=== PATIENT | female | born 1970 | race Caucasian/White ===

== ENCOUNTER 2021-02-28 16:33 | Emergency (ER) | payer BC, SELFPAY ==
[2021-02-28 16:54] VITALS: BP 147/99; PULSE 70; RESP 20; TEMP 36.4; O2SAT 99
--- NOTE | 2021-02-28 17:24 | ED.URI ---
HPI - URI/Sore Throat General Chief Complaint: Upper Respiratory Infection Stated Complaint: Cough, sinus pain, Stomach pain. Time Seen by Provider: 02/28/21 17:20 Source: patient and RN notes reviewed Mode of arrival: ambulatory Limitations: no limitations History of Present Illness HPI Narrative: 51-year-old female presents with concern for ear pain, nasal congestion, shortness of breath. Reports she also had abdominal cramping yesterday. Reports she took laxatives after the abdominal cramping he has had having loose stools. She reports someone in her house have had similar symptoms has not been tested. She is not vaccinated for Covid. Reports her mother has Covid. MD elicited complaint: sore throat and nasal congestion Related Data Home Medications Medication Instructions Recorded Confirmed atenolol 02/28/21 hydrochlorothiazide 02/28/21 levothyroxine 02/28/21 Allergies Allergy/AdvReac Type Severity Reaction Status Date / Time No Known Allergies Allergy Verified 02/28/21 16:55 Review of Systems Review of Systems: CONSTITUTIONAL: Reports malaise. Denies chills, sweats, or fever. EYES: Denies visual changes, redness, or discharge. ENT: Reports rhinorrhea, congestion, otalgia. Denies sinus pain and sore throat. CARDIOVASCULAR: Denies chest pain, palpitations, or edema. RESPIRATORY: Reports cough. Denies dyspnea. GASTROINTESTINAL: Denies abdominal pain, nausea, vomiting, diarrhea SKIN: Denies rash or itching. MUSCULOSKELETAL: Denies myalgia. NEUROLOGIC: Denies headache. All systems reviewed & are unremarkable except as noted in HPI and below PMFSH Comments At time of signature, agree with nursing past medical, surgical, social and family history. There is no relevant family history pertinent to the presenting complaint Exam Narrative: GENERAL: Well-appearing, well-nourished, and in no acute distress. HEAD: Normocephalic EYES: PERRLA, conjunctivae clear ENT: Nares clear. Mucous membranes moist. TM pearly garcia with dull light reflex bilaterally; no tragal tenderness. Oropharynx not erythematous without lesions. Tonsils not enlarged and without exudate, no drooling, no hoarseness, no trismus, uvula midline. NECK: Supple. No lymphadenopathy CHEST: Clear to auscultation, breath sounds equal. No wheezing, rhonchi, rales, or stridor. No respiratory distress, speaks in full sentences. Abdomen: Bowel sounds active, no abdominal tenderness HEART: Regular rate and rhythm. No murmur heard. SKIN: Warm, dry, no rash. NEURO: Alert and oriented x3. PSYCH: Normal mood and affect Course Course Emergency Course: Patient is aware of diagnosis, understands and agrees to treatment plan. Anticipatory guidance given. Patient agrees to follow-up as directed and is aware of reasons to seek care at the emergency department. Portions of this record may have been created with voice recognition software Level of Care: Express Care Visit Vital Signs Vital signs: Vital Signs Temperature 97.6 F 02/28/21 16:54 Pulse Rate 70 02/28/21 16:54 Respiratory Rate 20 02/28/21 16:54 Blood Pressure 147/99 H 02/28/21 16:54 Pulse Oximetry 99 02/28/21 16:54 Temperature 97.6 F 02/28/21 16:54 Pulse Rate 70 02/28/21 16:54 Respiratory Rate 20 02/28/21 16:54 Blood Pressure 147/99 H 02/28/21 16:54 Pulse Oximetry 99 02/28/21 16:54 Reviewed. MDM - URI/Sore Throat MDM Narrative Medical decision making narrative: Differential diagnosis considered: Haynes virus, strep pharyngitis, allergic rhinitis, upper respiratory tract infection, sinusitis, rhinosinusitis, nasopharyngitis. viral pharyngitis, otitis media, otitis externa, pneumonia, bronchitis, viral cough syndrome, viral syndrome, and influenza. Exam findings show no acute concerns or changes; patient is non-toxic appearing and is in no distress. Patient is appropriate for outpatient treatment and follow-up. Lab Data Attestation: I reviewed the patient's lab result
[2021-03-01 14:39] LABS: SARS-CoV-2 RNA PCR Negative
== END 2021-02-28 17:58 | disposition home or self-care (01) ==
PROVIDERS: Emergency Provider Nurse Practitioner; PCP Nurse Practitioner Family
DX: B34.9 Viral infection, unspecified (principal); Z20.822 Contact with and (suspected) exposure to COVID-19; E03.9 Hypothyroidism, unspecified; I10 Essential (primary) hypertension
CPT/HCPCS: 87426; 87804; 99213; C9803; G0463; U0003; U0005

== ENCOUNTER 2024-08-01 19:13 | Emergency (ER) | payer BC, SELFPAY ==
--- NOTE | ~2024-08-01 | XR_ITS ---
EXAMINATION: XR chest 2V Exam Date/Time: 08/01/2024 19:34 CDT HISTORY: chest pain Comparison: None. RESULT: Lines, tubes, and devices: None. Lungs and pleura: Clear. Cardiomediastinal silhouette: Unremarkable. Other: No acute osseous or upper abdominal finding. IMPRESSION: No acute cardiopulmonary process. Reviewed, dictated and finalized at location K.
--- NOTE | 2024-08-01 19:16 | ECG_ITS ---
Test Date: 2024-08-01 19:22:57 Measurements Intervals [place] Rate: 66 P: 11 AK: 191 QRS: 23 QRSD: 89 T: 30 QT: 398 QTc: 419 Interpretive Statements SINUS RHYTHM BASELINE ARTIFACT- II, III, AVR, AVF NORMAL ECG No previous ECG available for comparison Electronically Signed On 08-01-2024 20:12:10 CDT by Richard Murphy D.O.
--- OUTSIDE RECORDS SUMMARY | 2024-08-01 19:16 | XMS_ITS | Clinical Summary ---
Author Organization [facility] Medical Office Building [address] Address [address] [place] [address] Care Team Providers Care Shank Skinner Name Role Phone Dory Willams NP Primary Care Provider [phone] Raquel Bai MD Unavailable [phone] Allergies Active Allergy Reactions Criticality Noted Date Comments Latex Unknown 02/11/2017 Medications hydroCHLOROthiaz imtiaz (HYDRODIURIL) 25 mg tablet Take 1 tablet (25 mg total) by mouth daily 90 tablet 3 4 Active Additional Information Patient not taking.Reported on 06/04/2024 levothyroxine (SYNTHROID) 137 mcg tablet TAKE 1 TABLET BY MOUTH EVERY MORNING BEFORE BREAKFAST 90 tablet 3 4 Active atenoloL (TENORMIN) 50 mg tabletIndication s:Essential hypertension TAKE 1 TABLET(50 MG) BY MOUTH DAILY 90 tablet 3 4 Active testosterone cypionate (DEPO-TESTOTERON E) 200 mg/mL injectionIndicat ions:Decreased libido INJECT 1 ML IN THE MUSCLE EVERY 3 MONTHS DIRECTED 1 mL 5 Active tirzepatide, weight loss, (ZEPBOUND) 10 mg/0.5 mL pen injectorIndicati ons:Weight Loss Management for Obese Patient (BMI >= 30) Inject 0.5 mL (10 mg total) under the skin every 7 days 2 mL 1 5 Active clonazePAM (KlonoPIN) 0.5 mg tablet TAKE 1 TABLET BY MOUTH THREE TIMES DAILY NEEDED FOR ANXIETY 90 tablet 5 5 Active estradioL (ESTRACE) 1 mg tabletIndication s:Menopausal syndrome (hot flashes) TAKE 1 TABLET BY MOUTH EVERY DAY 90 tablet 5 Active Active Problems Problem Noted Date Diagnosed Date Mass of subcutaneous tissue of back 06/15/2024 Class 3 severe obesity due t o excess calories with serious comorbidity and body mass index (BMI) of 40.0 to 44.9 in adult 04/30/2024 Assessment & Plan (04/30/2024 10:25 AM SYSTEMS SOFTWARE MANAGER): Doing well with zepbound. Increase to 10mg weekly. F/u in October for annual with labs Class 3 severe obesity due t o excess calories with serious comorbidity and body mass index (BMI) of 45.0 to 49.9 in adult 11/06/2023 Assessment & Plan (04/30/2024 10:23 AM SYSTEMS SOFTWARE MANAGER): Original BMI Assessment & Plan (11/06/2023 8:07 AM CDT): Has been using 's zepbound. Paying out of pocket. Will continue zepbound 5mg weekly. 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 I gave her Silvadene. I recommended dressing changes daily. Keep covered. Refer to Wound Care for follow-up Laryngopharyngeal reflux (LPR) 09/02/2023 Assessment & Plan (09/02/2023 2:53 PM CDT): Take Levothyroxine first, then 30-60 minutes later Take Pantoprazole 40 mg (Protonix), 30-60 minutes prior to any other medication, food or fluids other than water Pepcid 40 mg at bedtime Modified Barium swallow Food allergy 09/02/2023 Assessment & Plan (09/02/2023 2:54 PM CDT): Food allergy testing Skin tag 08/08/2023 Assessment & Plan (06/04/2024 1:35 PM CDT): We will plan to remove the skin tag at the same time as the other 2 lesions. Assessment & Plan (08/08/2023 8:40 AM CDT): Given the issue with things rubbing on this area and causing bleeding we will also set her up for removal at the same time as the shoulder lesion. She is in understanding of the plan. Family history of colon cancer 06/25/2023 Encounter for screening colonoscopy 06/25/2023 Dysphagia 06/25/2023 Skin lesion of back 06/24/2023 Assessment & Plan (08/08/2023 8:39 AM CDT): Given the irregularity of color we will set the patient up for a biopsy of the shoulder skin lesion. The patient states scarring with procedures and given the summer time we would like to try and have this done after so she can stay out of the sun. We will set her up for a time for removal in October. If things appear to change she can call us sooner Assessment & Plan (06/24/2023 3:40 PM CDT): To Dr. Hebert Well woman exam 04/26/2022 Overview (06/24/2023): Lab: Pap:all normal Due for labs. Dick:scheduled. Colonoscopy:due BMD: Gardasil: Assessment & Plan (06/24/2023 3:21 PM CDT): Colonoscopy- order in there Complete exam done. Assessment & Plan (04/26/2022 3:19 PM SYSTEMS SOFTWARE MANAGER): Complete exam done. Decreased libido 03/27/2021 Overview (04/24/2021): 02/2021- they think the testosterone is working and she wants to continue on. To CBC, CMP and LP. Will rto 2m for next injection. Will have a refresher on how to give injections. Assessment & Plan (06/24/2023 3:20 PM CDT): Testosterone called in for her next injection. Chol good in 09/2022 Assessment & Plan (06/01/2022 6:54 AM CDT): Doing well on testosterone and wants to continue on Will follow cmp and lipids. Assessment & Plan (03/27/2021 2:16 PM SYSTEMS SOFTWARE MANAGER): Options discussed She wants to start testosterone Risk and benefits discussed including but not limited to elevated cholesterol, increased hair growth, acne, swelling of genitals, fluid retention and deepening of voice. Use reviewed including that the amount given q 3m is done to avoid these side effects. She voices understanding and desires to proceed She will grain picker and bring to the office for injection. rto 3m Nocturia 02/13/2021 Overview (04/24/2021): Will need to discuss further at her next visit along with her other bladder issues. 04/24/21- voiding diary reviewed. She drinks a lot and voids a lot. We discussed limiting her intake after 6pm and watching for bladder irritants. Assessment & Plan (04/24/2021 3:08 PM SYSTEMS SOFTWARE MANAGER): voiding diary reviewed. She drinks a lot and voids a lot. We discussed limiting her intake after 6pm and watching for bladder irritants. Assessment & Plan (03/27/2021 2:00 PM SYSTEMS SOFTWARE MANAGER): See above Multiple atypical skin moles 01/04/2021 Assessment & Plan (06/04/2024 1:34 PM CDT): As she will have the back lesion excised we will also remove the atypical lesion on the lateral aspect of the shoulder at the same time. Assessment & Plan (10/19/2022 8:58 PM CDT): Refer to dermatology Assessment & Plan (01/04/2021 1:57 PM SYSTEMS SOFTWARE MANAGER): Refer to dermatology Lipoma of back 01/04/2021 Assessment & Plan (06/04/2024 1:34 PM CDT): Given the pain and discomfort that the area is causing we will set her up for excision. Assessment & Plan (01/04/2021 1:56 PM SYSTEMS SOFTWARE MANAGER): Refer to general surgery for evaluation Menopausal syndrome (hot flashes) 01/04/2021 Overview (03/27/2021): estradiol 1mg Assessment & Plan (06/24/2023 3:19 PM CDT): Will use the estradiol 1mg Assessment & Plan (06/01/2022 6:55 AM CDT): Controlled with estradiol 1mg To continue on Assessment & Plan (03/27/2021 2:01 PM SYSTEMS SOFTWARE MANAGER): Better with estradiol 1mg. Assessment & Plan (02/13/2021 3:04 PM SYSTEMS SOFTWARE MANAGER): Will start her on estradiol .5mg po q day. Risk and benefits discussed. Breast cancer and CV disease discussed I am hoping that if she can get some sleep, some of the libido will return. They are dating. rto 6 weeks. If she gets breast tenderness with the .5, to take 1/2 until it goes away. Assessment & Plan (01/04/2021 1:53 PM SYSTEMS SOFTWARE MANAGER): Having hot flashes and decreased sexual desire. Will check FSH and LH and refer to gynecology Acute right-sided low back pain with sciatica Assessment & Plan (10/05/2020 10:59 AM CDT): Resolved. States it's 100% better. Assessment & Plan (08/12/2020 9:17 PM CDT): Recommended walking, stretching exercises. Handout on low back pain exercises given. Will start flexeril at bedtime. Gave diclofenac and recommended taking bid for 1-2 weeks scheduled. May take tylenol if needed. No further ibuprofen. Discussed physical therapy if needed. I asked patient to call back if no improvement over the course of 2-4 weeks and we can always order physical therapy. Pt voiced understanding of plan of care and f/u. Neuropathy 08/12/2020 Assessment & Plan (10/05/2020 11:21 AM CDT): With RLS symptoms. Taking gabapentin at bedtime and she has found some improvement with that. Assessment & Plan (08/12/2020 9:19 PM CDT): Interfering with quality of life. Will start gabapentin 300mg titrating up 900mg daily as tolerating/ needed. F/u 1 month Non-seasonal allergic rhinitis due to pollen 10/2019 Assessment & Plan (09/02/2023 2:53 PM CDT): Food allergy testing Blood respiratory allergy testing Assessment & Plan (01/04/2021 1:49 PM SYSTEMS SOFTWARE MANAGER): Refer to nail polish brush machine feeder for testing Assessment & Plan (02/03/2020 10:26 AM SYSTEMS SOFTWARE MANAGER): Has daily congestion due to allergies. Encouraged to restart fluticasone nasal spray daily. She has been taking Zyrtec daily. She can change that to Zyrtec D with Sudafed in it. Chronic pain of left knee 05/22/2018 Assessment & Plan (02/03/2020 10:23 AM SYSTEMS SOFTWARE MANAGER): Continues to have left knee pain but wants to hold off on orthopedic referral right now. She will let us know if she changes her mind Assessment & Plan (12/08/2018 10:28 AM CDT): Refer to ortho Assessment & Plan (05/28/2018 2:10 PM CDT): Will try meloxicam 15mg daily. Refer to PT. Return to ortho as planned Family hx of colon cancer 08/13/2017 Overview (08/13/2017): Added automatically from request for surgery [id number] Assessment & Plan (04/26/2022 3:22 PM SYSTEMS SOFTWARE MANAGER): She is due for colonoscopy Bursitis of hip 08/12/2017 Stress incontinence of urine 08/12/2017 Assessment & Plan (06/24/2023 3:22 PM CDT): She feels like it is getting worse Will refer to Dr. Gar. Assessment & Plan (04/26/2022 3:21 PM SYSTEMS SOFTWARE MANAGER): Stable, doesn't want to get sling Assessment & Plan (04/24/2021 3:08 PM SYSTEMS SOFTWARE MANAGER): Better, will follow Assessment & Plan (08/12/2017 1:48 PM CDT): Ongoing problem. Urine dip normal. placed referral to urology Essential hypertension 02/11/2017 Assessment & Plan (11/07/2023 8:07 AM CDT): Stable/ Improved. Blood pressure is adequately controlled on hydrochlorothiazide . We will not make any medication changes today. Will have her follow-up in 6 months for continued monitoring and management Assessment & Plan (04/22/2023 4:11 PM SYSTEMS SOFTWARE MANAGER): Stable/ Improved. Blood pressure is adequately controlled on current medication. We will not make any medication changes today. Will have her follow-up in 6 months for continued monitoring and management Assessment & Plan (10/19/2022 8:55 PM CDT): Stable/ Improved. Blood pressure is adequately controlled on current medication. We will not make any medication changes today. Will have her follow-up in 6 months for continued monitoring and management Assessment & Plan (04/11/2022 4:10 PM SYSTEMS SOFTWARE MANAGER): BP Readings from Last 3 Encounters: 02/07/22 122/89 10/04/21 132/83 04/24/21 130/84 There were no vitals taken for this visit. Lab Results Component Value Date POTASSIUM 4.3 04/24/2021 Continue atenlol 50 mg every day Hctz, 25 mg every day since she is well controlled Assessment & Plan (10/07/2021 9:37 PM CDT): Stable/ Improved. Blood pressure is adequately controlled on current medication. We will not make any medication changes today. Will have her follow-up in 6 months for continued monitoring and management Assessment & Plan (04/16/2021 10:26 AM SYSTEMS SOFTWARE MANAGER): Stable/ Improved. Blood pressure is adequately controlled on current medication. We will not make any medication changes today. Will have her follow-up in 6 months for continued monitoring and management Assessment & Plan (08/12/2020 9:10 PM CDT): Stable/ Improved. Blood pressure is adequately controlled on current medication. We will not make any medication changes today. Will have her follow-up in 6 months for continued monitoring and management Assessment & Plan (02/03/2020 10:24 AM SYSTEMS SOFTWARE MANAGER): Blood pressure is adequately controlled on current medication. We will not make any medication changes today. Will have her follow-up in 6 months for continued monitoring and management Assessment & Plan (05/27/2019 12:35 PM CDT): Blood pressure has been stable. Will have her continue current medication. F/u 6 months for physical/ med check and labs Assessment & Plan (12/08/2018 10:23 AM CDT): Hypertension is improving with treatment. Continue current treatment regimen. Continue current medications. Blood pressure will be reassessed 6 months. Assessment & Plan (05/28/2018 2:09 PM CDT): Hypertension is improving with treatment. Continue current medications. Blood pressure will be reassessed 6 months. Assessment & Plan (08/12/2017 1:50 PM CDT): Hypertension is improving with treatment. Continue current treatment regimen. Blood pressure will be reassessed in 4 weeks Blood pressure controlled - has mild swelling of ankles, especially in summer in heat. Started hctz 25mg prn for swelling. Assessment & Plan (02/11/2017 1:17 PM SYSTEMS SOFTWARE MANAGER): Hypertension is improving with treatment. Dietary sodium restriction. Weight loss. Regular aerobic exercise. Continue current medications. Blood pressure will be reassessed 6 months. Depression with anxiety 02/11/2017 Assessment & Plan (11/07/2023 8:09 AM CDT): Stable on current medication. Continue clonazepam as ordered. May follow up in 6 months Assessment & Plan (04/22/2023 4:12 PM SYSTEMS SOFTWARE MANAGER): Continues on clonazepam 0.5 mg t.i.d. p.r.n. Assessment & Plan (10/19/2022 8:57 PM CDT): Stable. Doing well with clonazepam .5mg bid. I checked their [place] [employer] sheet, and it was consistent with prescribed medications. Will continue current medications and f/u 6 months Assessment & Plan (04/11/2022 4:12 PM SYSTEMS SOFTWARE MANAGER): Stable on current medication. Continue clonazepam as per her pcp Assessment & Plan (10/07/2021 9:39 PM CDT): Stable on current medication. Continue clonazepam as ordered. May follow up in 6 months Assessment & Plan (04/24/2021 3:09 PM SYSTEMS SOFTWARE MANAGER): Has been good. Will follow and see if she has a moment of depression and anxiety a month after her next shot. Assessment & Plan (04/16/2021 10:26 AM SYSTEMS SOFTWARE MANAGER): Is improving with hormone therapy monitored by Dr. Bai. Is going to consider restarting ssri with Dr. Bai when she follows up Assessment & Plan (03/27/2021 2:07 PM SYSTEMS SOFTWARE MANAGER): She will wait to see how the testosterone effects her and then restart her celexa. Assessment & Plan (02/13/2021 3:05 PM SYSTEMS SOFTWARE MANAGER): Stable with out meds Assessment & Plan (01/04/2021 1:51 PM SYSTEMS SOFTWARE MANAGER): Stable on current medication. Continue Wellbutrin as ordered. May follow up in 6 months Assessment & Plan (10/05/2020 11:21 AM CDT): Stabilized. Continue Wellbutrin XL 150 mg once daily. Will have her follow-up in 6 months Assessment & Plan (08/12/2020 9:16 PM CDT): She quit taking the citalopram. Will try wellbutrin xl 150mg daily. F/u 1 month for recheck Assessment & Plan (02/03/2020 10:24 AM SYSTEMS SOFTWARE MANAGER): Stable on current medication. Continue citalopram and clonazepam as ordered. May follow up in 6 months Assessment & Plan (05/27/2019 12:02 PM CDT): Continue on citalopram 20 mg once daily. Will continue clonazepam 0.5 mg t.i.d. p.r.n.. Refills given. Will have her follow-up in 6 months with office visit and labs Assessment & Plan (12/08/2018 10:28 AM CDT): Continue celexa. She has been having more anxiety. We had switched her from xanax to clonazepam. She saves them for night, but sometimes has to take one during the day. Will increase to .5mg TID prn. Discussed taking them bid and take one in the afternoon if needed. Assessment & Plan (05/28/2018 2:11 PM CDT): Continue current medications. Doing well on celexa 30mg. F/u 6 months Assessment & Plan (08/12/2017 1:49 PM CDT): Will trial increase of celexa to 30mg to see if anxiety is more controlled in evening. Will also change xanax to clonazepam .5mg at bedtime. F/u 1 month for recheck Assessment & Plan (02/11/2017 1:38 PM SYSTEMS SOFTWARE MANAGER): Psychological condition is improving with treatment. Medication changes per orders. Psychological condition will be reassessed 6 months. Continue celexa and xanax. Acquired hypothyroidism 02/11/2017 Overview (03/27/2021): Normal TSH=07/2020 Assessment & Plan (11/06/2023 8:01 AM CDT): Check TSH today. Continue current medication. . Please take levothyroxine on an empty stomach. This means 1 hour before eating or 2 hours after eating. Food in the stomach will interfere with absorption of the levothyroxine. Calcium, antacids and iron supplements will also interfere with the absorption of levothyroxine. Please take these at a different time of the day Assessment & Plan (04/22/2023 4:12 PM SYSTEMS SOFTWARE MANAGER): We would increased levothyroxine to 137 mcg at last office visit. She is due for repeat TSH. Labs ordered today. Assessment & Plan (10/19/2022 8:55 PM CDT): Check TSH today. Continue current medication. . Please take levothyroxine on an empty stomach. This means 1 hour before eating or 2 hours after eating. Food in the stomach will interfere with absorption of the levothyroxine. Calcium, antacids and iron supplements will also interfere with the absorption of levothyroxine. Please take these at a different time of the day Assessment & Plan (04/11/2022 4:12 PM SYSTEMS SOFTWARE MANAGER): Lab Results Component Value Date TSH 4.40 (H) 10/04/2021 Last tsh mildly elevated, would consider increasing her synthroid despite not needing it to be increased as it welln hopefully provide some improvement in sx. Other option would be to add low dose cytomel Assessment & Plan (10/07/2021 9:37 PM CDT): Check TSH today. Continue current medication. . Please take levothyroxine on an empty stomach. This means 1 hour before eating or 2 hours after eating. Food in the stomach will interfere with absorption of the levothyroxine. Calcium, antacids and iron supplements will also interfere with the absorption of levothyroxine. Please take these at a different time of the day Assessment & Plan (04/16/2021 10:25 AM SYSTEMS SOFTWARE MANAGER): Thyroid stable. Will continue current medication and recheck with labs this summer. Assessment & Plan (10/05/2020 11:20 AM CDT): Had increased levothyroxine to 112 mcg. Will recheck TSH today. Assessment & Plan (08/12/2020 9:11 PM CDT): Check TSH today. Continue current medication. Assessment & Plan (02/03/2020 10:24 AM SYSTEMS SOFTWARE MANAGER): Check TSH today. Continue current medication. Assessment & Plan (05/27/2019 12:34 PM CDT): Check TSH in 6 months with OV. Continue current medication. Assessment & Plan (12/08/2018 10:24 AM CDT): Check TSH today. Continue current medication. Assessment & Plan (05/28/2018 2:10 PM CDT): Order for labs. Continue current medications. Assessment & Plan (08/12/2017 1:50 PM CDT): Due for repeat lab work. Continue levothyroxine. Assessment & Plan (02/11/2017 1:37 PM SYSTEMS SOFTWARE MANAGER): Has been on synthroid 100mcg. Has been out for over 2 weeks. Restart synthroid 100mcg. jose will then recheck TSH in 6-8 weeks History of bladder suspension procedure 02/12/20 17 Overview (03/27/2021): Leaking now Has seen someone and was told to do kegals No PVR since prior to surgery UsG done 03/27/21 for PVR- pending Assessment & Plan (03/31/2021 6:56 PM SYSTEMS SOFTWARE MANAGER): Leaking now Has seen someone and was told to do kegals No PVR since prior to surgery UsG done 03/27/21 for PVR- pending (no catheters in office) May need voiding diary. If there is a component of DI, may benefit from anticolinergics. I was told this was low, but the official report was pending. To a voiding diary. Assessment & Plan (02/11/2017 1:40 PM SYSTEMS SOFTWARE MANAGER): She feels like the bladder is dropping again and is asking for referral to urology. Resolved Problems Problem Noted Date Diagnosed Date Resolved Date Open wound of left lower leg 11/04/2023 04/30/2024 Difficulty swallowing 06/24/20232024 Assessment & Plan (09/02/2023 2:53 PM CDT): Modified Barium swallow Assessment & Plan (06/24/2023 3:38 PM CDT): Will refer to Dr. Camejo's Numbness and tingling in both hands 10/07/2021 04/30/2024 Assessment & Plan (10/07/2021 9:41 PM CDT): Emg/ncv ordered. Recommended cock-up wrist brace at night, nsaids as needed Other chest pain 12/08/2018 02/03/2020 Assessment & Plan (12/08/2018 10:30 AM CDT): EKG shows NSR. Likely anxiety, but I told her one eKg could not rule out CAD. I encouraged her to go to the ER if she has continued chest pain for full workup. Also encouraged referral to cardiology, but pt states she does not want referral at this time. Discussed risks of not going including acute coronary syndrome and risk of and pt voiced understanding. Chronic fatigue 10/03/2017 10/19/2022 Assessment & Plan (10/07/2017 7:19 AM CDT): Sleeping improved with clonazepam. Also c/o of easy bruising. Hx anemia. Will order labs Anemia 10/03/2017 02/13/2021 Assessment & Plan (10/03/2017 1:22 PM CDT): Will recheck cbc and B12 Annual physical exam 08/13/2017 024 Overview (08/13/2017): Added automatically from request for surgery [id number] Assessment & Plan (04/22/2023 4:09 PM SYSTEMS SOFTWARE MANAGER): Patient Counseling: --Nutrition: Stressed importance of moderation in sodium/caffeine intake, saturated fat and cholesterol, caloric balance, sufficient intake of fresh fruits, vegetables, --Exercise: Stressed the importance of regular exercise. --Continue routine dental and vision visits --Immunizations reviewed and offered --Discussed benefits of screening colonoscopy.- starting at age 45-50- UTD --females- mammograms offered if applicable/ needed., starting at age 40- due -Routine labs/ screenings ordered Assessment & Plan (10/07/2021 9:38 PM CDT): Patient Counseling: --Nutrition: Stressed importance of moderation in sodium/caffeine intake, saturated fat and cholesterol, caloric balance, sufficient intake of fresh fruits, vegetables, --Exercise: Stressed the importance of regular exercise. --Continue routine dental and vision visits --Immunizations reviewed and offered --Discussed benefits of screening colonoscopy.- starting at age 45-50- UTD --females- mammograms offered if applicable/ needed., starting at age 40- scheduled -Routine labs/ screenings ordered Assessment & Plan (01/04/2021 1:59 PM SYSTEMS SOFTWARE MANAGER): -Recommended: Healthy diet. Avoiding junk food/fast food. -30 minutes of exercise most days of the week. Increase to 45 minutes for weight loss. Immunizations: Up to date lose weight, increase physical activity, continue present diet with no restrictions, continue present plan, call if any problems Follow-up in 6 months. 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 08/12/2017 02/03/2020 Encounters Date Type Department Care Team Description 07/24/2024 Hospital Encounter [facility] Operating Room [address] [place] [address] Preston Giron MD 06/04/2024 11:25 AM CDT Office Visit [facility] [address] [facility] [address] [place] [address] Preston Giron MD Multiple atypical skin moles (Primary Dx); Lipoma of back; Skin tag 05/21/2024 Telephone [facility] Primary Care at [address] [address] Dory Willams NP Medical Question/Miscellane ous 05/05/2024 Telephone [facility] [address] [facility] [address] [place] [address] Raquel Bai MD Referral Follow Up (Dr Janay Gar ) from Last 3 Months Immunizations Immunization Administration Dates Next Due Influenza, Unspecified 11/01/2023(Deferr ed: Patient Refused),04/22/2023(Deferred: Patient Refused),10/16/2022(Deferred: Patient Refused),02/25/2022(Deferred: Patient Refused),10/26/2021(Deferred: Patient Refused),10/04/2021(Deferred: Patient Refused),04/26/2021(Deferred: Patient Refused),02/11/2017(Deferred: Patient Refused) Tdap 01/03/2021 Surgical History Surgery Date Site/Laterality Comments SECTION SECTION APPENDECTOMY CHOLECYSTECTOMY BLADDER SUSPENSION HYSTERECTOMY 02/25/2014 - 02/24/2015 partial UPPER GASTROINTESTINAL ENDOSCOPY 01/09/2024 Medical History Medical History Date Comments Thyroid disease Hypertension Anemia 10/03/2017 Open wound of left lower leg 11/04/2023 Family History Medical History Relation Name Comments Colon cancer Brother he was told not hereditary Hypertension Father Cancer Neg Hx no breast or gy n cancer 02/13/21 Relation Name Status Comments Brother Father Mother Alive Social History Tobacco Use Types Packs/Day Years Used Date Smoking Tobacco: Former Cigarettes Q uit: 2013 Smokeless Tobacco: Never Tobacco Cessation:Counseling Given: Not Answered Humiliation, Afraid, Rape, and Kick questionnair e Answer Date Recorded Within the last year, have y ou been afraid of your partner or ex-partner? No 02/13/2021 Within the last year, have y ou been humiliated or emotionally abused in other ways by your partner or ex-partner? No Within the last year, have y ou been kicked, hit, slapped, or otherwise physically hurt by your partner or ex-partner? No 02/13/2021 Within the last year, have y ou been raped or forced to have any kind of sexual activity by your partner or ex-partner? No 02/13/2021 AUDIT-C Answer Date Recorded Q1: How often do you have a drink containing alc ohol? 2-3 times a week 06/24/2023 Q2: How many drinks containi ng alcohol do you have on a typical day when you are drinking? 5 or 6 06/24/2023 Q3: How often do you have si x or more drinks on one occasion? Monthly 06/24/2023 PHQ-2 Answer Date Recorded PHQ-2 Total Score (If total score is 3 or more points, staff should administer the PHQ-9) 0 11/01/2023 Personal Safety Answer Date Recorded Have you ever been in or are you currently in a harmful physical or emotional relationship or is someone making you feel afraid or unsafe? 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 Not on file Not on file Not on file Obstetrics History Para Term AB IAB SAB Ectopic Multiple Livin g Live Births 2 2 2 2 Date Outcome GA Total Labor Labor/2nd/3rd Weight Sex Type Anes PTL Kinza A1 A5 Name Clin Term Term Last Filed Vital Signs Vital Sign Reading Time Taken Comments Blood Pressure 122/86 06/04/2024 11:14 AM CDT Pulse 61 06/04/2024 11:14 AM CDT Temperature 36.1 C (97 F) 06/04/2024 11:14 AM CDT Respiratory Rate 18 04/30/2024 9:46 AM SYSTEMS SOFTWARE MANAGER Oxygen Saturation 99% 06/04/2024 11: 14 AM CDT Inhaled Oxygen Concentration - - Weight 106.9 kg (235 lb 11.2 oz) 2024 11:14 AM CDT Height 157.5 cm (5' 2) 06/04/2024 11:1 4 AM CDT Body Mass Index 43.11 06/04/2024 11:14 AM CDT Plan of Treatment Health Maintenance Due Date Last Done Comments Hepatitis C Screening 1970 Hepatitis B Screening 02/26/1990 Breast Cancer Screening-Mammogram 09/21/2021 09/21/2020, 06/09/2018, 03/27/2017 Zoster Vaccine (1 of 2) 02/26/2022 Regular Well Visit/Exam 18-64 06/23/2024 06/24/2023, 04/22/2023, 04/26/2022, Additional history exists Depression Screening 10/31/2024 11/01/2023, 06/24/2023, 04/22/2023, Additional history exists Colon Cancer Screening-Colonoscopy 01/08/2029 01/09/2024, 10/14/2017, 10/14/2017 DTaP/Tdap/Td Vaccine (2 - Td or Tdap) 01/03/2031 01/03/2021 Influenza Vaccine Discontinued Pneumococcal vaccine <65 Aged Out No longer eligible based on patient's age to complete this topic Procedures Procedure Name Priority Date/Time Associated Diagnosis Comments COLONOSCOPY 01/09/2024 12:40 PM SYSTEMS SOFTWARE MANAGER SCREENING MAMMOGRAM BILATERAL W SURJIT Schedule Routine, Read Routine (OP Routine) 09/21/2020 1:13 PM CDT Screening mammogram for high-risk patient from Last 3 Months or Most Recently Relevant to Health Maintenance Results * Colonoscopy (01/09/2024 12:40 PM SYSTEMS SOFTWARE MANAGER) Anatomical Region Laterality Modality Other Narrative Procedure Note KarKatey caal MD - 01/09/2024 12:40 PM CST [facility] Patient Name: Cassi Mcpherson Procedure Date: 01/09/2024 12:40PM Date of : 1970 Admit Type: Outpatient Age: 53 Gender: Female Attending MD: Katey Andrade M.D. Room: [facility] ENDOSCOPY ROOM 1 Note Status: Finalized Patient Profile: This is a 53 year old female. Brother had coloncancer. Procedure: Colonoscopy Indications: Screening in patient at increased risk: Familyhistory of 1st-degree relative with colorectal cancerbefore age 60 years, Last colonoscopy: September 2017 Referring MD: Usha Oneill Providers: Katey Andrade M.D. Impression: - Internal and external hemorrhoids - The entire examined colon is normal overall. Biopsied. Recommendation: - Repeat colonoscopy in 5 years for screeningpurposes. Medicines: Monitored Anesthesia Care Complications: No immediate complications. Estimated Blood Loss: Estimated blood loss: none. Procedure: Pre-Anesthesia Assessment: - Prior to the procedure, a History and Physicalwas performed, and patient medications and allergieswere reviewed. The patient's tolerance of previous anesthesia was also reviewed. The risks andbenefits of the procedure and the sedation options and risks were discussed with the patient. All questions were answered, and informed consent was obtained. Prior Anticoagulants: The patient has taken noanticoagulant or antiplatelet agents. ASA Grade Assessment: Per anesthesia note and evaluation. After reviewing the risks and benefits, the patient was deemed in satisfactory condition to undergo the procedure. The benefits, risks and alternatives of theprocedure and sedation were discussed and informed consentwas obtained. All questions were answered. Please referto the signed informed consent document in the medical record. The bowel preparation used was Miralax via split dose instruction. The bowel preparation usedwas bisacodyl tablets via split dose instruction. The scope was passed under direct vision. The Pediatric Colonoscope PCF-H190L [id number] was introducedthrough the anus and advanced to the the cecum, identifiedby appendiceal orifice and ileocecal valve. Thequality of the bowel preparation was good. Bowel prep was administered using a split dose. Findings: Small to medium-sized external hemorrhoids were found on perianalexam. Some bleeding noted after insertion of the scope. The cecum appeared normal. The colon (entire examined portion) appeared normal. No polyps and no mass lesions noted. Random biopsies were taken with a cold forcepsfor histology. Internal hemorrhoids were found during retroflexion. The hemorrhoids were small to medium-sized. Electronically signed by Katey Andrade M.D. Katey Andrade M.D. 01/09/2024 2:21:10 PM Number of Addenda: 0 Note Initiated On: 01/09/2024 12:40 PM Procedure Code(s): --- Professional --- 62801, Colonoscopy, flexible; with biopsy, single or multiple Diagnosis Code(s): --- Professional --- Z80.0, Family history of malignant neoplasm of digestive organs K64.8, Other hemorrhoids CPT copyright 2020 [employer]. All rights reserved. The codes documented in this report are preliminary and upon activities attendant reviewmay be revised to meet current compliance requirements. Recognized by the [employer] for promoting quality in endoscopy Katey Andrade MD ENDOSCOPY PROCEDURES Final Result * Screening Mammogram Bilateral W Surjit (09/21/2020 1:13 PM CDT) Anatomical Region Laterality Modality Breast Bilateral Mammography 09/21/2020 1:51 PM CDT Impressions 09/21/2020 1:51 PM CDT There is no mammographic evidence of malignancy. A 1 year screening mammogram is recommended. BI-RADS: 1 - Negative. The patient will be entered into a reminder system with a target due date of 1 year for her next mammogram. Electronically signed by: MD Cathi Aden 09/21/2020 1:51 PM CDT EXAMINATION: SCREENING MAMMOGRAM BILATERAL W SURJIT ORDERING HEALTHCARE PROVIDER: DORY WILLAMS HISTORY: Routine screening mammography. COMPARISON: 06/09/2018 and 03/27/2017 TECHNIQUE: CC and MLO views of the bilateral breasts were obtained with digital technique using breast tomosynthesis with C view. Computer aided detection was utilized. FINDINGS: DENSITY: There are scattered fibroglandular elements in the bilateral breasts. BREASTS: There are no suspicious masses, suspicious calcifications, or other suspicious findings in either breast. There has been no suspicious interval change. Dory Willams EXPLOSIVE ORDNANCE TECHNICIAN IMG MAMMO PROCEDURES Final Re sult from Last 3 Months or Most Recently Relevant to Health Maintenance Insurance ANTHEM ACCESS CHOICE ANTHEM ACCESS CHOICE ANTHEM ACCESS CHOICE Advance Directives For more information, please contact: [phone] * Full Code (Latest Code Status on File) Date Activated Date Inactivated Comments 01/09/2024 12:15 PM 01/09/2024 6:50 PM * Full Code Date Activated Date Inactivated Comments 01/09/2024 12:15 PM 01/09/2024 12:15 PM * Full Code Date Activated Date Inactivated Comments 10/14/2017 11:47 AM 10/14/2017 4:17 PM Care Teams Shank Skinner Relationship Specialty Start Date End Date Dory Willams NP PCP - General Family Medicine 02/11/17 Raquel Bai MD Consulting Physician Obstetrics and Gynecology 10/04/21
--- OUTSIDE RECORDS SUMMARY | 2024-08-01 19:16 | XMS_ITS | Encounter Summary ---
Author Organization [facility] Healthcare Address [address] [place] [address] Care Team Providers Care Air Breaker Operator Name Role Phone Dory Willams NP Primary Care Provider [phone] Raquel Bai MD Unavailable [phone] Reason for Visit * Auth/Cert (Routine) Specialty Diagnoses / Procedures Referred By Gibran saenz Referred To Contact Diagnoses Mass of subcutaneous tissue of back Mass of subcutaneous tissue of back [R22.2] Procedures [place] EXCISION TUMOR SOFT TIS BACK/FLANK SUBQ 3 CM/> EXCISION SOFT TISSUE MASS OF BACK Referral ID Status Reason Start Date Expiration Date Visits Re quested Visits Authorized [id number] 1 1 Encounter Details Date Type Department Care Team (Late st Contact Info) Description 07/24/2024 Hospital Encounter [facility] Operating Room [address] [place] [address] Preston Giron MD [address] [place] [id number] Social History Tobacco Use Types Packs/Day Years Used Date Smoking Tobacco: Former Cigarettes Q uit: 2013 Smokeless Tobacco: Never Humiliation, Afraid, Rape, and Kick questionnair e [...] file Not on file Not on file documented as of this encounter Plan of Treatment Not on file documented as of this encounter Visit Diagnoses Diagnosis Mass of subcutaneous tissue of back- Primary documented in this encounter Admitting Diagnoses Diagnosis Mass of subcutaneous tissue of back documented in this encounter Care Teams Air Breaker Operator Relationship Specialty Start Date End Date Dory Willams NP PCP - General Family Medicine 02/11/17 Raquel Bai MD Consulting Physician Obstetrics and Gynecology 10/04/21 documented as of this encounter
--- OUTSIDE RECORDS SUMMARY | 2024-08-01 19:16 | XMS_ITS | Encounter Summary ---
Author Organization [facility] Address [address] [place] [address] Phone Care Team Providers Care Associate School Psychologist Name Role Phone Dory Willams NP Primary Care Provider [phone] Raquel Bai MD Unavailable [phone] Encounter Details Date Type Department Care Team (Late st Contact Info) Description 02/11/2017 Orders Only [facility] ProviderWu MD [address] [place] [id number] Social History Tobacco Use Types Packs/Day Years Used Date Smoking Tobacco: Former Cigarettes Q uit: 2013 Smokeless Tobacco: Never Comments Unknown Sex and Gender Information Value Date Recorded Sex Assigned at Not on file Legal Sex Female 11:16 AM CDT Gender Identity Not on file Sexual Orientation Not on file documented as of this encounter Plan of Treatment Not on file documented as of this encounter Procedures Procedure Name Priority Date/Time Associated Diagnosis Comments DISCHARGE LABORATORY CUMULATIVE REPORT 02/11/2017 12:00 AM FORMING ROLL OPERATOR HEAVY DUTY documented in this encounter Results * DISCHARGE LABORATORY CUMULATIVE REPORT (02/11/2017 12:00 AM FORMING ROLL OPERATOR HEAVY DUTY) Narrative 02/11/2017 12:00 AM FORMING ROLL OPERATOR HEAVY DUTY Ordered by an unspecified provider. Historical Provider LAB BLOOD ORDERABLES Lore l Result documented in this encounter Visit Diagnoses Not on filedocumented in this encounter Additional Health Concerns Infection Onset Date Last Indicated Resolved Time COVID: Suspected 12/01/2019 12/01/2019 12/02/2019 4:01 PM CDT Respiratory Infection ([facility]), contact + droplet Comment:Automatically added due to negative COVID-19 result. 12/02/2019 12/02/2019 12/16/2019 3:0 7 AM CDT COVID: Suspected 02/07/2022 02/07/2022 02/08/2022 1:17 AM FORMING ROLL OPERATOR HEAVY DUTY COVID: Suspected 03/19/2022 03/19/2022 03/19/2022 9:04 AM FORMING ROLL OPERATOR HEAVY DUTY COVID: Suspected 01/03/2023 01/03/2023 01/03/2023 10:28 AM FORMING ROLL OPERATOR HEAVY DUTY COVID: Suspected 01/03/2023 01/03/2023 01/03/2023 5:32 PM FORMING ROLL OPERATOR HEAVY DUTY documented as of this encounter Care Teams Associate School Psychologist Relationship Specialty Start Date End Date Dory Willams NP PCP - General Family Medicine 02/11/17 Raquel Bai MD Consulting Physician Obstetrics and Gynecology 10/04/21 documented as of this encounter
[2024-08-01 19:17] VITALS: BP 165/105; PULSE 72; RESP 15; TEMP 36.7; O2SAT 99
--- OUTSIDE RECORDS SUMMARY | 2024-08-01 19:17 | XMS_ITS | Referral Summary ---
Author Organization [facility] Medical Office Building [address] Address [address] [place] [address] Care Team Providers Care Roaster Operator Name Role Phone Dory Willams NP Primary Care Provider [phone] Raquel Bai MD Unavailable + [phone] Encounters Date Type Department Care Team Description 07/24/2024 Hospital Encounter [facility] Operating Room [address] [place] [address] Preston Giron MD 06/04/2024 11:25 AM CDT Office Visit [facility] [address] [place] [address] [address] [place] [address] Preston Giron MD Multiple atypical skin moles (Primary Dx); Lipoma of back; Skin tag 05/21/2024 Telephone [facility] [id number] [place] [address] Dory Willams NP Medical Question/Miscellane ous 05/05/2024 Telephone [facility] [address] [place] [address] [address] [place] [address] Raquel Bai MD Referral Follow Up (Dr Janay Gar ) from Last 3 Months Allergies Active Allergy Reactions Criticality Noted Date [...] 04/30/2024 Assessment & Plan (04/30/2024 10:25 AM X RAY EQUIPMENT TESTER): Doing well with zepbound. Increase to 10mg weekly. F/u in October for annual with labs Class 3 severe obesity due t o excess calories with serious comorbidity and body mass index (BMI) of 45.0 to 49.9 in adult 11/06/2023 Assessment & Plan (04/30/2024 10:23 AM X RAY EQUIPMENT TESTER): Original BMI Assessment & Plan (11/06/2023 8:07 [...] done. Assessment & Plan (04/26/2022 3:19 PM X RAY EQUIPMENT TESTER): Complete exam done. Decreased libido 03/27/2021 Overview [...] lipids. Assessment & Plan (03/27/2021 2:16 PM X RAY EQUIPMENT TESTER): Options discussed She wants to start testosterone Risk and benefits discussed including but not limited to elevated cholesterol, increased hair growth, acne, swelling of genitals, fluid retention and deepening of voice. Use reviewed including that the amount given q 3m is done to avoid these side effects. She voices understanding and desires to proceed She will crop picker and bring to the office for injection. rto 3m Nocturia 02/13/2021 Overview (04/24/2021): Will need to discuss further at her next visit along with her other bladder issues. 04/24/21- voiding diary reviewed. She drinks a lot and voids a lot. We discussed limiting her intake after 6pm and watching for bladder irritants. Assessment & Plan (04/24/2021 3:08 PM X RAY EQUIPMENT TESTER): voiding diary reviewed. She drinks a lot and voids a lot. We discussed limiting her intake after 6pm and watching for bladder irritants. Assessment & Plan (03/27/2021 2:00 PM X RAY EQUIPMENT TESTER): See above Multiple atypical skin moles 01/04/2021 Assessment & Plan (06/04/2024 1:34 PM CDT): As she will have the back lesion excised we will also remove the atypical lesion on the lateral aspect of the shoulder at the same time. Assessment & Plan (10/19/2022 8:58 PM CDT): Refer to dermatology Assessment & Plan (01/04/2021 1:57 PM X RAY EQUIPMENT TESTER): Refer to dermatology Lipoma of back 01/04/2021 Assessment & Plan (06/04/2024 1:34 PM CDT): Given the pain and discomfort that the area is causing we will set her up for excision. Assessment & Plan (01/04/2021 1:56 PM X RAY EQUIPMENT TESTER): Refer to general surgery for evaluation Menopausal syndrome (hot flashes) 01/04/2021 Overview (03/27/2021): estradiol 1mg Assessment & Plan (06/24/2023 3:19 PM CDT): Will use the estradiol 1mg Assessment & Plan (06/01/2022 6:55 AM CDT): Controlled with estradiol 1mg To continue on Assessment & Plan (03/27/2021 2:01 PM X RAY EQUIPMENT TESTER): Better with estradiol 1mg. Assessment & Plan (02/13/2021 3:04 PM X RAY EQUIPMENT TESTER): Will start her on estradiol .5mg po q day. Risk and benefits discussed. Breast cancer and CV disease discussed I am hoping that if she can get some sleep, some of the libido will return. They are dating. rto 6 weeks. If she gets breast tenderness with the .5, to take 1/2 until it goes away. Assessment & Plan (01/04/2021 1:53 PM X RAY EQUIPMENT TESTER): Having hot flashes and decreased sexual desire. [...] testing Assessment & Plan (01/04/2021 1:49 PM X RAY EQUIPMENT TESTER): Refer to preservative filler machine operator for testing Assessment & Plan (02/03/2020 10:26 AM X RAY EQUIPMENT TESTER): Has daily congestion due to allergies. Encouraged to restart fluticasone nasal spray daily. She has been taking Zyrtec daily. She can change that to Zyrtec D with Sudafed in it. Chronic pain of left knee 05/22/2018 Assessment & Plan (02/03/2020 10:23 AM X RAY EQUIPMENT TESTER): Continues to have left knee pain but [...] (08/13/2017): Added automatically from request for surgery [id number] Assessment & Plan (04/26/2022 3:22 PM X RAY EQUIPMENT TESTER): She is due for colonoscopy Bursitis of hip 08/12/2017 Stress incontinence of urine 08/12/2017 Assessment & Plan (06/24/2023 3:22 PM CDT): She feels like it is getting worse Will refer to Dr. Gar. Assessment & Plan (04/26/2022 3:21 PM X RAY EQUIPMENT TESTER): Stable, doesn't want to get sling Assessment & Plan (04/24/2021 3:08 PM X RAY EQUIPMENT TESTER): Better, will follow Assessment & Plan (08/12/2017 [...] management Assessment & Plan (04/22/2023 4:11 PM X RAY EQUIPMENT TESTER): Stable/ Improved. Blood pressure is adequately controlled [...] management Assessment & Plan (04/11/2022 4:10 PM X RAY EQUIPMENT TESTER): BP Readings from Last 3 Encounters: 02/07/22 [...] management Assessment & Plan (04/16/2021 10:26 AM X RAY EQUIPMENT TESTER): Stable/ Improved. Blood pressure is adequately controlled [...] management Assessment & Plan (02/03/2020 10:24 AM X RAY EQUIPMENT TESTER): Blood pressure is adequately controlled on current [...] swelling. Assessment & Plan (02/11/2017 1:17 PM X RAY EQUIPMENT TESTER): Hypertension is improving with treatment. Dietary sodium restriction. Weight loss. Regular aerobic exercise. Continue current medications. Blood pressure will be reassessed 6 months. Depression with anxiety 02/11/2017 Assessment & Plan (11/07/2023 8:09 AM CDT): Stable on current medication. Continue clonazepam as ordered. May follow up in 6 months Assessment & Plan (04/22/2023 4:12 PM X RAY EQUIPMENT TESTER): Continues on clonazepam 0.5 mg t.i.d. p.r.n. Assessment & Plan (10/19/2022 8:57 PM CDT): Stable. Doing well with clonazepam .5mg bid. I checked their [place] WASHTUB WORKER sheet, and it was consistent with prescribed medications. Will continue current medications and f/u 6 months Assessment & Plan (04/11/2022 4:12 PM X RAY EQUIPMENT TESTER): Stable on current medication. Continue clonazepam as per her pcp Assessment & Plan (10/07/2021 9:39 PM CDT): Stable on current medication. Continue clonazepam as ordered. May follow up in 6 months Assessment & Plan (04/24/2021 3:09 PM X RAY EQUIPMENT TESTER): Has been good. Will follow and see if she has a moment of depression and anxiety a month after her next shot. Assessment & Plan (04/16/2021 10:26 AM X RAY EQUIPMENT TESTER): Is improving with hormone therapy monitored by Dr. Bai. Is going to consider restarting ssri with Dr. Bai when she follows up Assessment & Plan (03/27/2021 2:07 PM X RAY EQUIPMENT TESTER): She will wait to see how the testosterone effects her and then restart her celexa. Assessment & Plan (02/13/2021 3:05 PM X RAY EQUIPMENT TESTER): Stable with out meds Assessment & Plan (01/04/2021 1:51 PM X RAY EQUIPMENT TESTER): Stable on current medication. Continue Wellbutrin as [...] recheck Assessment & Plan (02/03/2020 10:24 AM X RAY EQUIPMENT TESTER): Stable on current medication. Continue citalopram and [...] recheck Assessment & Plan (02/11/2017 1:38 PM X RAY EQUIPMENT TESTER): Psychological condition is improving with treatment. Medication [...] day Assessment & Plan (04/22/2023 4:12 PM X RAY EQUIPMENT TESTER): We would increased levothyroxine to 137 mcg [...] day Assessment & Plan (04/11/2022 4:12 PM X RAY EQUIPMENT TESTER): Lab Results Component Value Date TSH 4.40 [...] day Assessment & Plan (04/16/2021 10:25 AM X RAY EQUIPMENT TESTER): Thyroid stable. Will continue current medication and recheck with labs this summer. Assessment & Plan (10/05/2020 11:20 AM CDT): Had increased levothyroxine to 112 mcg. Will recheck TSH today. Assessment & Plan (08/12/2020 9:11 PM CDT): Check TSH today. Continue current medication. Assessment & Plan (02/03/2020 10:24 AM X RAY EQUIPMENT TESTER): Check TSH today. Continue current medication. Assessment [...] levothyroxine. Assessment & Plan (02/11/2017 1:37 PM X RAY EQUIPMENT TESTER): Has been on synthroid 100mcg. Has been out for over 2 weeks. Restart synthroid 100mcg. jose will then recheck TSH in 6-8 weeks History of bladder suspension procedure 02/12/20 17 Overview (03/27/2021): Leaking now Has seen someone and was told to do kegals No PVR since prior to surgery UsG done 03/27/21 for PVR- pending Assessment & Plan (03/31/2021 6:56 PM X RAY EQUIPMENT TESTER): Leaking now Has seen someone and was [...] diary. Assessment & Plan (02/11/2017 1:40 PM X RAY EQUIPMENT TESTER): She feels like the bladder is dropping [...] (08/13/2017): Added automatically from request for surgery [id number] Assessment & Plan (04/22/2023 4:09 PM X RAY EQUIPMENT TESTER): Patient Counseling: --Nutrition: Stressed importance of moderation [...] ordered Assessment & Plan (01/04/2021 1:59 PM X RAY EQUIPMENT TESTER): -Recommended: Healthy diet. Avoiding junk food/fast food. -30 minutes of exercise most days of the week. Increase to 45 minutes for weight loss. Immunizations: Up to date lose weight, increase physical activity, continue present diet with no restrictions, continue present plan, call if any problems Follow-up in 6 months. 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 08/12/2017 02/03/2020 Immunizations Immunization Administration Dates Next Due Influenza, Unspecified 11/01/2023(Deferr ed: Patient Refused),04/22/2023(Deferred: Patient Refused),10/16/2022(Deferred: Patient Refused),02/25/2022(Deferred: Patient Refused),10/26/2021(Deferred: Patient Refused),10/04/2021(Deferred: Patient Refused),04/26/2021(Deferred: Patient Refused),02/11/2017(Deferred: Patient Refused) Tdap 01/03/2021 Social History Tobacco Use Types Packs/Day Years Used Date Smoking Tobacco: Former Cigarettes Q uit: 2012 Smokeless Tobacco: Never Tobacco Cessation:Counseling Given: Not [...] file Not on file Not on file Last Filed Vital Signs Vital Sign Reading Time Taken Comments Blood Pressure 122/86 06/04/2024 11:14 AM CDT Pulse 61 06/04/2024 11:14 AM CDT Temperature 36.1 C (97 F) 06/04/2024 11:14 AM CDT Respiratory Rate 18 04/30/2024 9:46 AM X RAY EQUIPMENT TESTER Oxygen Saturation 99% 06/04/2024 11: 14 AM CDT Inhaled Oxygen Concentration - - Weight 106.9 kg (235 lb 11.2 oz) 2024 11:14 AM CDT Height 157.5 cm (5' 2) 06/04/2024 11:1 4 AM CDT Body Mass Index 43.11 06/04/2024 11:14 AM CDT Plan of Treatment Not on file Procedures Procedure Name Priority Date/Time Associated Diagnosis Comments COLONOSCOPY 01/09/2024 12:40 PM X RAY EQUIPMENT TESTER SCREENING MAMMOGRAM BILATERAL W SURJIT Schedule Routine, Read Routine (OP Routine) 09/21/2020 1:13 PM CDT Screening mammogram for high-risk patient from Last 3 Months or Most Recently Relevant to Health Maintenance Results * Colonoscopy (01/09/2024 12:40 PM X RAY EQUIPMENT TESTER) Anatomical Region Laterality Modality Other Narrative Procedure Note Katey Andrade MD - 01/09/2024 12:40 PM CST [facility] Patient Name: Cassi Mcpherson Procedure Date: 01/09/2024 12:40PM Date of : 1970 Admit Type: Outpatient Age: 53 Gender: Female Attending MD: Katey Andrade M.D. Room: [facility] 1 Note Status: Finalized Patient [...] under direct vision. The Pediatric Colonoscope [id number] was introducedthrough the anus and advanced to [...] 12:40 PM Procedure Code(s): --- Professional --- 89562, Colonoscopy, flexible; with biopsy, single or multiple Diagnosis Code(s): --- Professional --- Z80.0, Family history of malignant neoplasm of digestive organs K64.8, Other hemorrhoids CPT copyright 2020 [employer]. All rights reserved. The codes documented in this report are preliminary and upon associate professor of psychology reviewmay be revised to meet current compliance requirements. Recognized by the [employer] for promoting quality [...] been no suspicious interval change. Dory Willams ROLLER HELPER IMG MAMMO PROCEDURES Final Re sult from Last 3 Months or Most Recently Relevant to Health Maintenance Insurance ANTHEM ACCESS CHOICE ANTHEM ACCESS CHOICE ANTHEM ACCESS CHOICE Advance Directives For more information, please contact: [phone] * Full Code (Latest Code Status on File) Date Activated Date Inactivated Comments 01/09/2024 12:15 PM 01/09/2024 6:50 PM * Full Code Date Activated Date Inactivated Comments 01/09/2024 12:15 PM 01/09/2024 12:15 PM * Full Code Date Activated Date Inactivated Comments 10/14/2017 11:47 AM 10/14/2017 4:17 PM Care Teams Roaster Operator Relationship Specialty Start Date End Date Dory Willams NP PCP - General Family Medicine 02/11/17 Raquel Bai MD Consulting Physician Obstetrics and Gynecology 10/04/21
--- OUTSIDE RECORDS SUMMARY | 2024-08-01 19:17 | XMS_ITS | Clinical Summary ---
Author Organization [facility] Address [address] [place] [address] Care Team Providers Care Creative Writing English Professor Name Role Phone Unavailable Primary Care Provider Unavailabl e Source Comments [facility],non-owned Affiliates and Associated Physician Practices is amultiple site organization consisting of ambulatory clinics and hospital sitesin [place] and [place]. This disclosure is being madepursuant to the Care Everywhere program and may not contain all information available regarding this patient. 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 Gender Identity Not on file Sexual Orientation Not on file Plan of Treatment Upcoming Encounters Date Type Department Care Team (Late st Contact Info) Description 08/25/2024 2:00 PM CDT Office Visit [facility] [address] [place] [phone] Lesia Mcdaniel MD [address] [place] [address] Health Maintenance Due Date Last Done Comments COLOGUARD (AGES 45-75) - COL ON CA SCREENING 1970 COLON MONITORING 1972 COLONOSCOPY - COLON CA SCREENING 1972 CT COLONOGRAPHY - COLON CA SCREENING 1970 Colorectal Cancer Screening 1972 FIT - COLON CA SCREENING 1972 FLEX SIG - COLON CA SCREENING 1972 LIPID TESTING 1970 MAMMOGRAM 1970 PAP SMEAR 1972 HIV SCREENING 02/26/1987 HEPATITIS C SCREENING 02/22/1990 DTAP/TDAP/TD VACCINES (1 - Tdap) 02/26/1991 HEPATITIS B VACCINE (1 of 3 - 19+ 3-dose series) 02/26/1991 PNEUMOCOCCAL VACCINE 50+ (1 of 1 - PCV) 02/26/2022 ZOSTER VACCINE (1 of 2) 02/26/2022 COVID-19 VACCINE (1 - 2023-2 5 season) 2023 DEPRESSION SCREENING 02/26/2024 INFLUENZA VACCINE (Season Ended) 2024 HIB VACCINE Aged Out No longer eligi ble based on patient's age to complete this topic HPV VACCINE Aged Out No longer eligi ble based on patient's age to complete this topic MENINGOCOCCAL (Group B) VACC INE SHARED DECISION-MAKING Aged Out No longer eligibl e based on patient's age to complete this topic MENINGOCOCCAL GROUPS A/C/Y/W VACCINE Aged Out No longer eligible b ased on patient's age to complete this topic Insurance [employer]ER[employer]
--- OUTSIDE RECORDS SUMMARY | 2024-08-01 19:17 | XMS_ITS | Continuity of Care Document ---
Author Organization [facility] Address [address] [place] [address] Phone Care Team Providers Care Denitrator Operator Name Role Phone Jay Judge MD Unavailable Unavailable Medications Medication Instructions Dosage Effective Dates (start - stop) Status Comments Conrad 5 mg-325 mg tablet take 1 tablet by oral route every 4 - 6 hours as needed for pain - Active ATENOLOL (unknown strength) Not Available - Active CELEXA (unknown strength) Not Available - Active NEXIUM (unknown strength) Not Available - Active ROPINIROLE HCL (unknown strength) Not Available - Active SYNTHROID (unknown strength) Not Available - Active XANAX (unknown strength) Not Available - Active HYDROCODONE-ACETAM INOPHEN (unknown strength) Not Available - Active KEFLEX (unknown strength) Not Available - Active NAPROXEN (unknown strength) Not Available - Active Procedures Procedure Date OFFICE/OUTPATIENT VISIT EST OFFICE/OUTPATIENT VISIT NEW Advance Directives Directive Yes / No Effective Date File Name No Information Encounters Encounter Description Practice Location Reason(s) For Visit Diagnoses Date Provider Providers Copied on Encounter OFFICE/OUTPAT IENT VISIT EST [facility] , [address] [place] [address], [address], [place] tel:[phone] [facility] Dislocation closed, finger [address] [place], [place], [id number] . tel: [phone] OFFICE/OUTPAT IENT VISIT NEW [facility] , [address], [place], [address], [place] tel:[phone] [facility] No Information [address], [place], [place], [id number] . tel: [phone] Family History Family Member Type Diagnosis Age At Onset Father Problem (finding) Father Problem (finding) Organ failure (Cause Of ) Brother Problem (finding) cancer of colon Payers Payer name Insurance type Covered constitution party ID Authoriza tion(s) No Information Social History Type Description Quantity Date Captured Comments Alcohol Use Details Unknown Caffeine Use Details Unknown Tobacco Use Status No Information Smoking Status No Information Sex Female Chief Complaint And Reason For Visit No Information Reason For Referral Reason For Referral No Information History Of Present Illness Encounter Date Complaint History Of Prese nt Illness No Information Functional Status Date Functional Assessmen t No Information Instructions Date Instruction Additional Infor mation No Information Assessments Type Assessment Date assessment Dislocation closed, finger Patient Care Teams Name Effective Dates (start - stop) Status Members No Information
--- OUTSIDE RECORDS SUMMARY | 2024-08-01 19:17 | XMS_ITS | Data Portability ---
Author Organization [place] - [facility], Main Office - [facility] Address [address] [place] [address] Care Team Providers Care Piano Builder Name Role Phone KESHIARICHARD LIANNA Primary Care Provider Assessment Encounter Date Assessment Date Assessment LastModified by Organization Details LastModified Time 04/26/2015 04/26/2015 HISTORY: Ms. Bruno is a 45-year-old female who presents today for evaluation of right hip pain. Her hip has been bothering her for quite some time, but seven to eight months ago, she fell out of a shower onto her lateral right hip and had an increase in her pain. She denies groin or thigh pain. Once again, her symptoms are primarily lateral. She denies buttocks pain or radiating symptoms. Her symptoms seem to be exacerbated by walking, standing, sleeping on her side, etc. She has taken Motrin and Aleve, but they do not seem to help. She denies any sort of conservative treatment other than the anti-inflammatorie s. EXAM: The patient is a well-developed, well-nourished, 45-year-old female who is in no acute distress. Head is normocephalic and symmetric. Eyes: PERRLA. Ears: Clear. Nares are patent. Mouth shows good oral hygiene. Neck is supple and nontender. There are no palpable masses. Trachea is midline. There are no audible carotid bruits. Heart has a regular rate and rhythm without murmur. Lungs are clear to auscultation bilaterally. Abdomen is soft and nontender to palpation. There are audible bowel sounds in all four quadrants. Musculoskeletal: The patient is ambulating with a very slight antalgic limp favoring the right side. She has full range of motion of both hips. She has significant tenderness in the area of the right greater trochanter and palpation in this area reproduces most of her hip symptoms. Grossly, the patient is neurovascularly intact. IMAGING: AP pelvis and lateral views of the right hip reveal no major bony or soft tissue abnormalities. The joint spaces are well maintained. AP and lateral views of the lumbar spine reveal some mild disc space narrowing, but no other significant abnormalities. IMPRESSION: GREATER TROCHANTERIC BURSITIS, RIGHT HIP. PLAN: I recommended an injection for greater trochanteric bursitis today. This was completed without incident. I told the patient that not only do I think it will help, but it will also aid in our diagnosis. I have given her a prescription for Mobic 15 mg to take with food and water. She can also do some iliotibial band stretching. We will see her back in three to four months for followup. The diagnostic and treatment plans were discussed with the patient. AP/sah yari Not available 04/27/2015 11:34:01 Plan of Treatment Reminders Order Date Submit Date Provider Last Modified By Organization Details Last Modified Time Details Appointments None recorded. Lab None recorded. Referral physical therapist referral - Evaluation and treatment: Right Hip IT Band Syndrome HEP 2015 Aminta greenberg Not available 6 11:34:01 Procedures None recorded. Surgeries None recorded. Imaging x-ray, hip 2015 016 kim [facility], [address] [place], [address], 6 17:21:47 x-ray, lumbar spine 2015 016 rruark [facility], [address] [place], [address], 6 17:21:47 Medication Orders meloxicam 15 mg tablet 2015 Aminta greenberg [facility] #[id number], [address] [facility], [place], [address], 6 11:34:01 Patient TargetsNo targets recorded. Patient Instructions Encounter Date Encounter Id Patient Instructions Last Modified By Organization Details Last Modified Time 04/26/2015 [id number] hip bursitis: care instructions shaskins Not available 04/27/2015 11:34:01 hip bursitis: exercises [facility]ins Not available 04/27/2015 11:34:01 trochanteric bursitis: [facility] 04/27/2015 11:34:01 hip pain: care instructions shaskins Not available 04/27/2015 11:34:01 osteoarthritis: care instructions shaskins Not available 04/27/2015 11:34:01 Reason for Referral Evaluation and treatment: Ri ght Hip IT Band Syndrome HEP Referring Physician: Johnny Falcon, Orthopedic Surgery, Encounter Date: 04/26/2015 Results Created Date Observation Date Name Description Value Unit Range Abnormal Flag Note LastModifiedBy Organization Detail LastModifiedTime Result Notes None recorded. Problems Name Problem SNOMED Code Status Onset Date Resolution Date Notes Provider Name and Address Organization Details Recorded Time Localized, primary osteoarthritis of the pelvic region and thigh 999649375 Active SYLVIA Jacome [facility] 6 11:34:01 Pain of hip region 00315057 Active Cristina watson [facility] 6 11:34:01 Bursitis of hip 31468066 Active SYLVIA Jacome [facility] 6 11:34:01 Problem Notes None recorded. Procedures Surgical History Date Name Laterality Status Provider Name and Address Organization Details Recorded Time 016 INJECT Methylpredisolone Acetate LARGE JOINT 40MG completed Patricia Saleh [facility] 04/26/2015 15:01:25 completed Charmaine Tran [facility] 04/26/2015 13:44:50 Appendectomy completed Charmaine Tran [facility] 04/26/2015 13:44:50 General Surgery completed Charmaine Tran [facility] 04/26/2015 13:44:50 Cholecystectomy completed Charmaine Tran [facility] 04/26/2015 13:44:50 Hysterectomy completed Charmaine Tran [facility] 04/26/2015 13:44:50 Imaging Results None recorded. Procedure Notes None recorded. Medical Equipment None Reported. Allergies Allergen ID Allergen Name Allergen Category Reaction Reaction Severity Criticality Documentation Date Start Date Code Code System Note Provider Name and Address Organization Details Recorded Time 756910 latex environme nt,medica tion Not available Not available Not available 04/26/2015 86594 91 RxNorm Charmaine Tran shirley [facility], 6 13:44:50 Medications Name Sig Start Date Stop Date Status Note LastModified by Organization Details LastModified Time Xanax 0.5 mg tablet Take 1 tablet 3 times a day by oral route. active Not Available Not Available No t Available meloxicam 15 mg tablet Take 1 tablet every day by oral route. 2015 active Not Available Not Available Not Avai lable Celexa 20 mg tablet Take 1 tablet every day by oral route. active Not Available Not Available No t Available Requip 0.25 mg tablet Take 1 tablet 3 times a day by oral route. active Not Available Not Available No t Available atenolol 50 mg tablet Take 1 tablet every day by oral route. active Not Available Not Available No t Available Motrin active Not Available Not Availa ble Not Available Nexium active Not Available Not Availa ble Not Available levothyroxine 100 mcg capsule Take 1 capsule every day by oral route. active Not Available Not Available No t Available Vitals Date Recorded Body height Heart rate Body mass index (BMI) Body weight Systolic blood pressure Diastolic blood pressure Provider Name and Address Organization Details Last Updated DateTime 6 157.48 cm 74 /min 46.6 kg/m2 508133. 95838 g 122 mm[Hg] 84 mm[Hg] Charmaine Tran [facility], 6 13:44:50 Social History Question Answer Notes LastModified by Organizat ion Details LastModified Time Tobacco Smoking Status Former Smoker Charmaine Tran shirley [facility] 04/26/2015 13:44:50 Do You Have An Advance Directive? No Information not available 04/26/2015 How Many Years Have You Consumed Alcohol? 22 Information not available 04/26/2015 Are You Blind Or Do You Have Difficulty Seeing? No Information not available 04/26/2015 Is Blood Transfusion Acceptable In An Emergency? Yes Information not available 04/26/2015 How Much Tobacco Do You Chew? None Information not available 04/26/2015 Are You Deaf Or Do You Have Serious Difficulty Hearing? No Information not available 04/26/2015 Which Illicit Or Recreational Drugs Have You Used? None Information not available 04/26/2015 Have You Directly Handled Bats, Rodents, Or Primates From Ebola Endemic Areas? No Information not available 04/26/2015 Have You Processed Blood Or Body Fluids From An Ebola Virus Disease Patient Without Appropriate PPE? No Information not available 04/26/2015 Have You Had Household Contact With An Ebola Virus Disease Patient? No Information not available 04/26/2015 Have You Had Direct Contact With A Body In An Ebola-affected Area Without Appropriate PPE? No Information not available 04/26/2015 Have You Had Percutaneous (e.g. Needle Stick) Or Mucous Membrane Exposure To Blood Or Body Fluids From An Ebola Virus Disease Patient? No Information not available 04/26/2015 Have You Had Other Close Contact With An Ebola Virus Disease Patient In Health Care Facilities Or Community Settings? No Information not available 04/26/2015 Have You Had Contact With Blood, Bodily Fluids, Or Human Remains Of A Patient Known To Have Or Suspected To Have Ebola Virus Disease? No Information not available 04/26/2015 Do You Reside In Or Have You Traveled To An Area Where Ebola Virus Transmission Is Active? No Information not available 04/26/2015 Who Is Your Employer? Unemployed Information not available 04/26/2015 Which Of Your Hands Is Dominant? Right Information not available 04/26/2015 Single Or Multi-level Home/work? Single Level Home Information not available 04/26/2015 How Many Years Have You Used Illicit Or Recreational Drugs? 0 Information not available 04/26/2015 Live Alone Or With Others? With Others Information not available 04/26/2015 Adventist Preference Christian Information not available 04/26/2015 Ethnic Identity Informati on not available 04/26/2015 Diet Type Regular Information no t available 04/26/2015 Education Level High School Informat ion not available 04/26/2015 Current Resident Of Long-Term Or Rehab Facility No Information not available 04/26/2015 If Yes, Name And Phone Number Of Facility No Information not available 04/26/2015 Marital Status Informatio n not available 04/26/2015 How Many Children Do You Have? 2 Information not available 04/26/2015 At What Age Did You Start Smoking Tobacco? 18 Information not available 04/26/2015 How Much Tobacco Do You Smoke? 1 PPW Information not available 04/26/2015 What Types Of Sporting Activities Do You Participate In? None Information not available 04/26/2015 General Stress Level Medium Information not available 04/26/2015 How Many Years Have You Smoked Tobacco? 8 Information not available 04/26/2015 Do You Have Difficulty Walking Or Climbing Stairs? Yes Information not available 04/26/2015 Sex: Unknown Functional Status Question Answer Note LastModified by Organizat ion Details LastModified Time What is your level of alcohol consumption? Moderate Information not available 04/26/2015 Are you currently employed? No Information not available 04/26/2015 Do you have difficulty doing errands alone? No Information not available 04/26/2015 Are you able to care for yourself? Yes Information not available 04/26/2015 What is your occupation? unemployed Information not available 04/26/2015 Do you have difficulty dressing or bathing? No Information not available 04/26/2015 What is your exercise level? None Information not available 04/26/2015 Mental Status Question Answer Note LastModified by Organization D etails LastModified Time Do you have difficulty concentrating, remembering or making decisions? No Information no t available 04/26/2015 Family History Relationship Description Onset Age of this Age Resolved Age Notes LastModified by Organization Details LastModified Time Mother Well adult still living Not available 04/26/2015 13:44:50 Father Hypertensive disorder 53 Not available 2015 13:44:50 Notes:...updated on 04/26/15 by paris... Medical History Condition Response Pancreatitis N HEME - Anemia N Gout N Hyperthyroidism N Rheumatoid arthritis N Irritable bowel syndrome N Osteoarthrosis N HEENT - Wears corrective lenses N COPD N Depression N Pneumonia N Peptic ulcer disease N History of head and neck tumor N NEURO - Cerebral palsy N Skin infection N Active aids N Mitral valve prolapse N Renal failure N HIV positive N GI - GERD Y Joint injury N Hypercholesterolemia N Hypoparathyroidism N MS - Fracture N Cerebrovascular accident N Fibromyalgia N PSYCHE - Claustrophobia N Neuromuscular disease N Poliomyelitis / post polio N ENDOCRINE - Obesity N Hearing impairment N Dysvascular amputation LE N Other diagnosis Y Anxiety disorder Y Deformity N CHEST - Sleep apnea N Crohn's disease N Pulmonary embolism N Chronic venous stasis disease N Psychosis N Coagulopathy N Cardiac valvular disease N Asthma N Blood clotting disorder N Are you under pain mgmt treatment N Fragility fracture N Vertigo N Hepatitis N Neuropathy N Coronary artery disease N Pressure sore N Diabetes Type II (NIDDM) N Skin ulceration N Bipolar disorder N Glaucoma N Legally blind N Hypothyroidism N Sinusitis / sinus infection N Pacemaker N Peripheral vascular disease N Cystic fibrosis N Cholecystitis N Sickle cell N VASCULAR - Deep venous thrombosis N Osteomyelitis N SKIN - Rash N INFECTIOUS - Current active infection N Heart murmur N Previous myocadial infarction N Itp / ttp N Congestive heart failure N Lupus Arthritis N Skin bruising N HEART - Arrhythmia N Diabetes Type I (IDDM) N Chemically anticoagulated N Dental caries / gingivitis N Fracture non-union N Dysvascular gangrene N - Cystitis N Renal dialysis N Diverticulitis N Dementia N Ulcerative colitis N Seizure disorder N MISC - Cancer N Organ transplant N Hypertension Y Osteoporosis N Gynecological History Statement/Question Response Number miscarriages 0 Period status Menopause due to hys terectomy Periods regular Not applicable LMP Interval Not applicable Contraception method None Age at Menarche 13 Number times 2 Number deliveries 2 Obstetrics History GPAL:G 0 P 0 0 0 0 Past Encounters Encounter ID Performer Location Encounter Start Date Encounter Closed Date Diagnosis/Indication Diagnosis SNOMED-CT Code Diagnosis ICD10 Code Diagnosis Note [id number] JOHNNY FALCON MD Main Office - [address] [address] 04/26/2015 13:25:28 04/26/2015 15:15:44 Localized, primary osteoarthritis of the pelvic region and thigh 740033463 M16.11 Pain of hip region 85414 002 M25.551 Bursitis of hip 23116665 M70.71 Health Concerns Section Related Observation LastModified by Organization Detai ls LastModified Time None Recorded Concern Status LastModified by Organization Details LastModified Time None Recorded Advance Directives Directive N: Payers Insurance Date Sequence Insurance Name Policy Number Policy Laughlin Covered Member ID Laughlin Member ID Guarantor Name 08/27/2015 1 [place] CHO[place]PPO) [id number] Derick Bruno [id number] Cassi Bruno 04/24/2015 1 [place]POS) [id number] Derick Bruno [id number] Cassi Bruno Notes Date Note Type Note Provider Name and Address Organization Details Recorded Time 04/26/2015 text/html HPI Ms. Bruno is a 45-year-old female who presents today for evaluation of right hip pain. Her hip has been bothering her for quite some time, but seven to eight months ago, she fell out of a shower onto her lateral right hip and had an increase in her pain. She denies groin or thigh pain. Once again, her symptoms are primarily lateral. She denies buttocks pain or radiating symptoms. Her symptoms seem to be exacerbated by walking, standing, sleeping on her side, etc. She has taken Motrin and Aleve, but they do not seem to help. She denies any sort of conservative treatment other than the anti-inflammatorie s. SYLVIA Jacome - [facility], 04/27/2015 11:34:35 OBGyn Episode No OBEpisode recorded.
--- OUTSIDE RECORDS SUMMARY | 2024-08-01 19:17 | XMS_ITS | CONTINUITY OF CARE DOCUMENT ---
Author Name brigid rainey Address Unknown Organization [facility] Office Address [address] [place] [address] Phone [phone] Care Team Providers Care Manager Deli Name Role Phone Prashanth Mendoza MD Unavailable HETAL GAS WELDING EQUIPMENT MECHANIC-BCMEGA Unavailable [phone] HETAL GAS WELDING EQUIPMENT MECHANIC-BCMEGA Unavailable [phone] INSURANCE PROVIDERS Payer name Policy type / Coverage type Tom red republican ID [facility] [id number]
--- OUTSIDE RECORDS SUMMARY | 2024-08-01 19:17 | XMS_ITS | Clinical Summary ---
Author Organization Health Plans Terry paris [facility] Address [address] [place] [address] Care Team Providers Care Leather Scraper Name Role Phone Dory Willams [facility] Primary Care Provider [phone] Social History Tobacco Use Types Packs/Day Years Used Date Smoking Tobacco: Never Assessed Comments Unknown Sex and Gender Information Value Date Recorded Sex Assigned at Not on file Legal Sex Female 10:15 AM CDT Gender Identity Not on file Sexual Orientation Not on file Plan of Treatment Health Maintenance Due Date Last Done Comments DTAP/TDAP/TD VACCINES (1 - Tdap) 02/26/1991 HEPATITIS B VACCINES (1 of 3 - 19+ 3-dose series) 03/1991 HPV/Cotest (21-29) 02/26/1993 CERVICAL CANCER SCREENING 02/26/2002 HPV/Cotest (30-65) 02/26/2002 PAP SMEAR 02/26/2002 BREAST CANCER SCREENING 2012 COLORECTAL SCREENING 02/26/2017 Colorectal Cancer Screening 02/26/2017 FIT-DNA Q 3 years 02/26/2017 FIT/FOBT Q 1 year 02/26/2017 Flex Sig/CT Colonography Q 5 years 02/26/2017 ZOSTER VACCINE (1 of 2) 02/26/2022 INFLUENZA VACCINE (#1) 2023 Insurance [facility] Care Teams Leather Scraper Relationship Specialty Start Date End Date Dory Willams FNP PCP - General Nurse Practitioner Family 05/21/19
[2024-08-01 19:30] LABS: Basophils Absolute Auto 0.1 K/mm3 (0.0-0.1); Basophils Percent Auto 1.1 % (0.2-1.2); Eosinophils Absolute Auto 1.1 K/mm3 (0-0.3); Eosinophils Percent Auto 12.6 % (0-4.4); Hematocrit 40.5 % (37.0-47.0); Hemoglobin 13.6 g/dL (12.0-15.0); Immature Granulocyte Absolute 0.04 K/mm3 (0.00-0.031); Immature Granulocyte Percent A 0.5 % (0-0.5); Lymphocytes Absolute Auto 2.12 K/mm3 (0.9-3.2); Lymphocytes Percent Auto 24.3 % (18.3-44.2); Mean Corpuscular HGB Conc 33.6 g/dl (32-36); Mean Corpuscular Hemoglobin 31.3 pg (26-34); Mean Corpuscular Volume 93.3 fl (80-100); Mean Platelet Volume 10.9 fl (7.4-10.4); Monocytes Absolute Auto 0.8 K/mm3 (0.1-0.6); Monocytes Percent Auto 8.7 % (2.6-8.5); Neutrophils Absolute Auto 4.6 K/mm3 (1.3-6.7); Neutrophils Percent Auto 52.8 % (45.5-73.1); Platelet Count Result 195 k/mm3 (150-375); Red Blood Count 4.34 M/mm3 (4.2-5.4); White Blood Count 8.7 K/mm3 (4.5-10.0)
[2024-08-01 19:39] LABS: Alanine Aminotransferase 16 U/L (6-35); Albumin Level 4.4 g/dL (3.5-5.1); Alkaline Phosphatase 54 U/L (38-126); Anion Gap 9 mmol/L (4-12); Aspartate Amino Transferase 24 U/L (14-36); Bilirubin,Total 0.9 mg/dL (0.2-1.3); Blood Urea Nitrogen 9 mg/dL (7-17); Carbon Dioxide 27 mmol/L (22-30); Chloride 99 mmol/L (98-107); Estimated CRCL calculation 99 ml/min; Estimated Glomerular Filt Rate > 60; Glucose 103 mg/dL (65-110); Lipase 76 U/L (23-300); Potassium 3.2 mmol/L (3.4-5.0); Sodium 135 mmol/L (137-145); Total Protein 7.4 g/dL (6.3-8.2)
[2024-08-01 19:40] LABS: INR 1.1; Prothrombin Time 14.5 Seconds (11.1-14.7)
[2024-08-01 19:50] LABS: Troponin I < 0.012 ng/mL (0.000-0.034)
--- OUTSIDE RECORDS SUMMARY | 2024-08-01 19:59 | XMS_ITS | Continuity of Care Document ---
Author Organization [facility] Address [address] [place] [address] Phone Care Team Providers Care Electronic Wirer Name Role Phone Jay Judge MD Unavailable Unavailable Medications Medication Instructions Dosage Effective Dates (start - stop) Status Comments [facility] 5 mg-325 mg tablet take 1 tablet [...] OFFICE/OUTPAT IENT VISIT EST [facility] , [address] [place] [address], [address], [place] tel:[phone] [facility] Dislocation closed, finger [address] [place]. [address] [place], [place], [id number] . tel: [phone] OFFICE/OUTPAT IENT VISIT NEW [facility] , [address], [place], [address], [place] tel:[phone] [facility] No Information [address] [place]. [address], [place], [place], [id number] . tel: [phone] Family History Family Member Type Diagnosis Age At Onset Father Problem (finding) Father Problem (finding) Organ failure (Cause Of ) Brother Problem (finding) cancer of colon Payers Payer name Insurance type Covered alliance party ID Authoriza tion(s) No Information Social [...]
--- OUTSIDE RECORDS SUMMARY | 2024-08-01 19:59 | XMS_ITS | CONTINUITY OF CARE DOCUMENT ---
Author Name brigid rainey Address Unknown Organization [facility] Office Address [address] [place] [address] Phone [phone] Care Team Providers Care Merchandise Team Manager Name Role Phone Prashanth Mendoza MD Unavailable HETAL STAMP PRESS OPERATOR-BCMEGA Unavailable HETAL STAMP PRESS OPERATOR-BCMEGA Unavailable INSURANCE PROVIDERS Payer name Policy type / Coverage type Tom red libertarian ID [facility] [id number]
--- OUTSIDE RECORDS SUMMARY | 2024-08-01 19:59 | XMS_ITS | Clinical Summary ---
Author Organization [facility] Medical Office Building [address] Address [address] [place] [address] Care Team Providers Care Business Supervisor Name Role Phone Dory Willams NP Primary Care Provider [phone] Raquel Bai MD Unavailable [phone] Allergies Active Allergy Reactions Criticality Noted Date [...] 04/30/2024 Assessment & Plan (04/30/2024 10:25 AM LABOR AND DELIVERY NURSE): Doing well with zepbound. Increase to 10mg weekly. F/u in October for annual with labs Class 3 severe obesity due t o excess calories with serious comorbidity and body mass index (BMI) of 45.0 to 49.9 in adult 11/06/2023 Assessment & Plan (04/30/2024 10:23 AM LABOR AND DELIVERY NURSE): Original BMI Assessment & Plan (11/06/2023 8:07 [...] done. Assessment & Plan (04/26/2022 3:19 PM LABOR AND DELIVERY NURSE): Complete exam done. Decreased libido 03/27/2021 Overview [...] lipids. Assessment & Plan (03/27/2021 2:16 PM LABOR AND DELIVERY NURSE): Options discussed She wants to start testosterone Risk and benefits discussed including but not limited to elevated cholesterol, increased hair growth, acne, swelling of genitals, fluid retention and deepening of voice. Use reviewed including that the amount given q 3m is done to avoid these side effects. 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 rto 3m Nocturia 02/13/2021 Overview (04/24/2021): Will need to discuss further at her next visit along with her other bladder issues. 04/24/21- voiding diary reviewed. She drinks a lot and voids a lot. We discussed limiting her intake after 6pm and watching for bladder irritants. Assessment & Plan (04/24/2021 3:08 PM LABOR AND DELIVERY NURSE): voiding diary reviewed. She drinks a lot and voids a lot. We discussed limiting her intake after 6pm and watching for bladder irritants. Assessment & Plan (03/27/2021 2:00 PM LABOR AND DELIVERY NURSE): See above Multiple atypical skin moles 01/04/2021 Assessment & Plan (06/04/2024 1:34 PM CDT): As she will have the back lesion excised we will also remove the atypical lesion on the lateral aspect of the shoulder at the same time. Assessment & Plan (10/19/2022 8:58 PM CDT): Refer to dermatology Assessment & Plan (01/04/2021 1:57 PM LABOR AND DELIVERY NURSE): Refer to dermatology Lipoma of back 01/04/2021 Assessment & Plan (06/04/2024 1:34 PM CDT): Given the pain and discomfort that the area is causing we will set her up for excision. Assessment & Plan (01/04/2021 1:56 PM LABOR AND DELIVERY NURSE): Refer to general surgery for evaluation Menopausal syndrome (hot flashes) 01/04/2021 Overview (03/27/2021): estradiol 1mg Assessment & Plan (06/24/2023 3:19 PM CDT): Will use the estradiol 1mg Assessment & Plan (06/01/2022 6:55 AM CDT): Controlled with estradiol 1mg To continue on Assessment & Plan (03/27/2021 2:01 PM LABOR AND DELIVERY NURSE): Better with estradiol 1mg. Assessment & Plan (02/13/2021 3:04 PM LABOR AND DELIVERY NURSE): Will start her on estradiol .5mg po q day. Risk and benefits discussed. Breast cancer and CV disease discussed I am hoping that if she can get some sleep, some of the libido will return. They are dating. rto 6 weeks. If she gets breast tenderness with the .5, to take 1/2 until it goes away. Assessment & Plan (01/04/2021 1:53 PM LABOR AND DELIVERY NURSE): Having hot flashes and decreased sexual desire. [...] testing Assessment & Plan (01/04/2021 1:49 PM LABOR AND DELIVERY NURSE): Refer to dope worker for testing Assessment & Plan (02/03/2020 10:26 AM LABOR AND DELIVERY NURSE): Has daily congestion due to allergies. Encouraged to restart fluticasone nasal spray daily. She has been taking Zyrtec daily. She can change that to Zyrtec D with Sudafed in it. Chronic pain of left knee 05/22/2018 Assessment & Plan (02/03/2020 10:23 AM LABOR AND DELIVERY NURSE): Continues to have left knee pain but [...] (08/13/2017): Added automatically from request for surgery [id number] Assessment & Plan (04/26/2022 3:22 PM LABOR AND DELIVERY NURSE): She is due for colonoscopy Bursitis of hip 08/12/2017 Stress incontinence of urine 08/12/2017 Assessment & Plan (06/24/2023 3:22 PM CDT): She feels like it is getting worse Will refer to Dr. Gar. Assessment & Plan (04/26/2022 3:21 PM LABOR AND DELIVERY NURSE): Stable, doesn't want to get sling Assessment & Plan (04/24/2021 3:08 PM LABOR AND DELIVERY NURSE): Better, will follow Assessment & Plan (08/12/2017 [...] management Assessment & Plan (04/22/2023 4:11 PM LABOR AND DELIVERY NURSE): Stable/ Improved. Blood pressure is adequately controlled [...] management Assessment & Plan (04/11/2022 4:10 PM LABOR AND DELIVERY NURSE): BP Readings from Last 3 Encounters: 02/07/22 [...] management Assessment & Plan (04/16/2021 10:26 AM LABOR AND DELIVERY NURSE): Stable/ Improved. Blood pressure is adequately controlled [...] management Assessment & Plan (02/03/2020 10:24 AM LABOR AND DELIVERY NURSE): Blood pressure is adequately controlled on current [...] swelling. Assessment & Plan (02/11/2017 1:17 PM LABOR AND DELIVERY NURSE): Hypertension is improving with treatment. Dietary sodium restriction. Weight loss. Regular aerobic exercise. Continue current medications. Blood pressure will be reassessed 6 months. Depression with anxiety 02/11/2017 Assessment & Plan (11/07/2023 8:09 AM CDT): Stable on current medication. Continue clonazepam as ordered. May follow up in 6 months Assessment & Plan (04/22/2023 4:12 PM LABOR AND DELIVERY NURSE): Continues on clonazepam 0.5 mg t.i.d. p.r.n. Assessment & Plan (10/19/2022 8:57 PM CDT): Stable. Doing well with clonazepam .5mg bid. I checked their [place] JOCKEY'S AGENT sheet, and it was consistent with prescribed medications. Will continue current medications and f/u 6 months Assessment & Plan (04/11/2022 4:12 PM LABOR AND DELIVERY NURSE): Stable on current medication. Continue clonazepam as per her pcp Assessment & Plan (10/07/2021 9:39 PM CDT): Stable on current medication. Continue clonazepam as ordered. May follow up in 6 months Assessment & Plan (04/24/2021 3:09 PM LABOR AND DELIVERY NURSE): Has been good. Will follow and see if she has a moment of depression and anxiety a month after her next shot. Assessment & Plan (04/16/2021 10:26 AM LABOR AND DELIVERY NURSE): Is improving with hormone therapy monitored by Dr. Bai. Is going to consider restarting ssri with Dr. Bai when she follows up Assessment & Plan (03/27/2021 2:07 PM LABOR AND DELIVERY NURSE): She will wait to see how the testosterone effects her and then restart her celexa. Assessment & Plan (02/13/2021 3:05 PM LABOR AND DELIVERY NURSE): Stable with out meds Assessment & Plan (01/04/2021 1:51 PM LABOR AND DELIVERY NURSE): Stable on current medication. Continue Wellbutrin as [...] recheck Assessment & Plan (02/03/2020 10:24 AM LABOR AND DELIVERY NURSE): Stable on current medication. Continue citalopram and [...] recheck Assessment & Plan (02/11/2017 1:38 PM LABOR AND DELIVERY NURSE): Psychological condition is improving with treatment. Medication [...] day Assessment & Plan (04/22/2023 4:12 PM LABOR AND DELIVERY NURSE): We would increased levothyroxine to 137 mcg [...] day Assessment & Plan (04/11/2022 4:12 PM LABOR AND DELIVERY NURSE): Lab Results Component Value Date TSH 4.40 [...] day Assessment & Plan (04/16/2021 10:25 AM LABOR AND DELIVERY NURSE): Thyroid stable. Will continue current medication and recheck with labs this summer. Assessment & Plan (10/05/2020 11:20 AM CDT): Had increased levothyroxine to 112 mcg. Will recheck TSH today. Assessment & Plan (08/12/2020 9:11 PM CDT): Check TSH today. Continue current medication. Assessment & Plan (02/03/2020 10:24 AM LABOR AND DELIVERY NURSE): Check TSH today. Continue current medication. Assessment [...] levothyroxine. Assessment & Plan (02/11/2017 1:37 PM LABOR AND DELIVERY NURSE): Has been on synthroid 100mcg. Has been out for over 2 weeks. Restart synthroid 100mcg. jose will then recheck TSH in 6-8 weeks History of bladder suspension procedure 02/12/20 17 Overview (03/27/2021): Leaking now Has seen someone and was told to do kegals No PVR since prior to surgery UsG done 03/27/21 for PVR- pending Assessment & Plan (03/31/2021 6:56 PM LABOR AND DELIVERY NURSE): Leaking now Has seen someone and was [...] diary. Assessment & Plan (02/11/2017 1:40 PM LABOR AND DELIVERY NURSE): She feels like the bladder is dropping [...] (08/13/2017): Added automatically from request for surgery [id number] Assessment & Plan (04/22/2023 4:09 PM LABOR AND DELIVERY NURSE): Patient Counseling: --Nutrition: Stressed importance of moderation [...] ordered Assessment & Plan (01/04/2021 1:59 PM LABOR AND DELIVERY NURSE): -Recommended: Healthy diet. Avoiding junk food/fast food. [...] Department Care Team Description 07/24/2024 Hospital Encounter [facility] Operating Room [address] [place] [address] Preston Giron MD 06/04/2024 11:25 AM CDT Office Visit [facility] [address] [facility] [address] [place] [address] Preston Giron MD Multiple atypical skin moles (Primary Dx); Lipoma of back; Skin tag 05/21/2024 Telephone [facility] Primary Care at [address] [address] Dory Willams NP Medical Question/Miscellane ous 05/05/2024 Telephone [facility] [address] [facility] [address] [place] [address] Raquel Bai MD Referral Follow [...] CDT Respiratory Rate 18 04/30/2024 9:46 AM LABOR AND DELIVERY NURSE Oxygen Saturation 99% 06/04/2024 11: 14 AM [...] Associated Diagnosis Comments COLONOSCOPY 01/09/2024 12:40 PM LABOR AND DELIVERY NURSE SCREENING MAMMOGRAM BILATERAL W SURJIT Schedule Routine, Read Routine (OP Routine) 09/21/2020 1:13 PM CDT Screening mammogram for high-risk patient from Last 3 Months or Most Recently Relevant to Health Maintenance Results * Colonoscopy (01/09/2024 12:40 PM LABOR AND DELIVERY NURSE) Anatomical Region Laterality Modality Other Narrative Procedure Note KarKatey caal MD - 01/09/2024 12:40 PM CST [facility] Patient Name: Cassi Mcpherson Procedure Date: 01/09/2024 12:40PM Date of : 1970 Admit Type: Outpatient Age: 53 Gender: Female Attending MD: Katey Andrade M.D. Room: [facility] ENDOSCOPY [facility]OM 1 Note Status: Finalized Patient [...] under direct vision. The Pediatric Colonoscope PCF-H190L [id number] was introducedthrough the anus and advanced to [...] 12:40 PM Procedure Code(s): --- Professional --- 77405, Colonoscopy, flexible; with biopsy, single or multiple Diagnosis Code(s): --- Professional --- Z80.0, Family history of malignant neoplasm of digestive organs K64.8, Other hemorrhoids CPT copyright 2020 [employer]. All rights reserved. The codes documented in this report are preliminary and upon cuff stitcher reviewmay be revised to meet current compliance requirements. Recognized by the [employer] [employer] for promoting quality [...] her next mammogram. Electronically signed by: MD Catih Aden 09/21/2020 1:51 PM CDT EXAMINATION: SCREENING [...] been no suspicious interval change. Dory Willams MEDICAL DOCTOR NUCLEAR MEDICINE IMG MAMMO PROCEDURES Final Re sult from Last 3 Months or Most Recently Relevant to Health Maintenance Insurance ANTHEM ACCESS CHOICE ANTHEM ACCESS CHOICE ANTHEM ACCESS CHOICE Advance Directives For more information, please contact: [phone] * Full Code (Latest Code Status on File) Date Activated Date Inactivated Comments 01/09/2024 12:15 PM 01/09/2024 6:50 PM * Full Code Date Activated Date Inactivated Comments 01/09/2024 12:15 PM 01/09/2024 12:15 PM * Full Code Date Activated Date Inactivated Comments 10/14/2017 11:47 AM 10/14/2017 4:17 PM Care Teams Business Supervisor Relationship Specialty Start Date End Date Dory Willams NP PCP - General Family Medicine 02/11/17 Raquel Bai MD Consulting Physician Obstetrics and Gynecology 10/04/21
--- OUTSIDE RECORDS SUMMARY | 2024-08-01 19:59 | XMS_ITS | Clinical Summary ---
Author Organization [facility] Address [address] [place] [address] Care Team Providers Care Director Of Patient Safety Name Role Phone Dory Willams [facility] Primary Care Provider [phone] Social History Tobacco Use Types Packs/Day Years [...] 2) 02/26/2022 INFLUENZA VACCINE (#1) 2023 Insurance [facility] [employer] CHOICE Care Teams Director Of Patient Safety Relationship Specialty Start Date End Date Dory Willams FNP PCP - General Nurse Practitioner Family 05/21/19
--- OUTSIDE RECORDS SUMMARY | 2024-08-01 19:59 | XMS_ITS | Encounter Summary ---
Author Organization [facility] Healthcare Address [address] [place] [address] Care Team Providers Care Religious Education Coordinator Name Role Phone Dory Willams NP Primary Care Provider [phone] Raquel Bai MD Unavailable [phone] Reason for Visit * Auth/Cert (Routine) Specialty Diagnoses / Procedures Referred By Gibran saenz Referred To Contact Diagnoses Mass of subcutaneous tissue of back Mass of subcutaneous tissue of back [R22.2] Procedures MD EXCISION TUMOR SOFT TIS BACK/FLANK SUBQ 3 CM/> EXCISION SOFT TISSUE MASS OF BACK Referral ID Status Reason Start Date Expiration Date Visits Re quested Visits Authorized [id number] 1 1 Encounter Details Date Type Department Care Team (Late st Contact Info) Description 07/24/2024 Hospital Encounter [facility] Operating Room 1 [place] [address] Preston Giron MD [address] [place] [id number] Social History Tobacco Use Types Packs/Day Years [...] back documented in this encounter Care Teams Religious Education Coordinator Relationship Specialty Start Date End Date Dory Willams NP PCP - General Family Medicine 02/11/17 Raquel Bai MD Consulting Physician Obstetrics and Gynecology 10/04/21 documented as of this encounter
--- OUTSIDE RECORDS SUMMARY | 2024-08-01 19:59 | XMS_ITS | Clinical Summary ---
Author Organization [facility] Address [address] [place] [place] [address] Care Team Providers Care Clinical Informatics Physician Name Role Phone Unavailable Primary Care Provider Unavailabl e Source Comments [facility],non-owned Affiliates and Associated Physician Practices is amultiple site organization consisting of ambulatory clinics and hospital sitesin [place], [place], [place] and [place]. This disclosure is being madepursuant to the Care Everywhere program and may not contain all information available regarding this patient. Last updated 17.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
--- OUTSIDE RECORDS SUMMARY | 2024-08-01 19:59 | XMS_ITS | Encounter Summary ---
Author Organization [facility] Address [address] [place] [address] Phone Care Team Providers Care Gis Professor Name Role Phone Dory Willams NP Primary Care Provider [phone] Raquel Bai MD Unavailable [phone] Encounter Details Date Type Department Care Team (Late st Contact Info) Description 02/11/2017 Orders Only [facility] ProviderWu MD [address] [place] [id number] Social History Tobacco Use Types Packs/Day [...] DISCHARGE LABORATORY CUMULATIVE REPORT 02/11/2017 12:00 AM LEAD INSTRUCTOR/FLIGHT ATTENDANT documented in this encounter Results * DISCHARGE LABORATORY CUMULATIVE REPORT (02/11/2017 12:00 AM LEAD INSTRUCTOR/FLIGHT ATTENDANT) Narrative 02/11/2017 12:00 AM LEAD INSTRUCTOR/FLIGHT ATTENDANT Ordered by an unspecified provider. Historical Provider [...] COVID: Suspected 02/07/2022 02/07/2022 02/08/2022 1:17 AM LEAD INSTRUCTOR/FLIGHT ATTENDANT COVID: Suspected 03/19/2022 03/19/2022 03/19/2022 9:04 AM LEAD INSTRUCTOR/FLIGHT ATTENDANT COVID: Suspected 01/03/2023 01/03/2023 01/03/2023 10:28 AM LEAD INSTRUCTOR/FLIGHT ATTENDANT COVID: Suspected 01/03/2023 01/03/2023 01/03/2023 5:32 PM LEAD INSTRUCTOR/FLIGHT ATTENDANT documented as of this encounter Care Teams Gis Professor Relationship Specialty Start Date End Date Dory Willams NP PCP - General Family Medicine 02/11/17 Raquel Bai MD Consulting Physician Obstetrics and Gynecology 10/04/21 documented as of this encounter
--- OUTSIDE RECORDS SUMMARY | 2024-08-01 19:59 | XMS_ITS | Referral Summary ---
Author Organization [facility] Medical Office Building B Address [address] [place] [address] Care Team Providers Care Black Puller Name Role Phone Dory Willams NP Primary Care Provider [phone] Raquel Bai MD Unavailable + [phone] Encounters Date Type Department Care Team Description 07/24/2024 Hospital Encounter [facility] Operating Room [address] [place] [address] Preston Giron MD 06/04/2024 11:25 AM CDT Office Visit [facility] [address] [place] [address] [address] [place] [address] Preston Giron MD Multiple atypical skin moles (Primary Dx); Lipoma of back; Skin tag 05/21/2024 Telephone [facility] at [address] [id number] [place] [address] Dory Willams NP Medical Question/Miscellane ous 05/05/2024 Telephone [facility] [address] [place] [address] [address] [place] [address] Raquel Bai MD Referral Follow [...] 04/30/2024 Assessment & Plan (04/30/2024 10:25 AM PREMISES TECHNICIAN): Doing well with zepbound. Increase to 10mg weekly. F/u in October for annual with labs Class 3 severe obesity due t o excess calories with serious comorbidity and body mass index (BMI) of 45.0 to 49.9 in adult 11/06/2023 Assessment & Plan (04/30/2024 10:23 AM PREMISES TECHNICIAN): Original BMI Assessment & Plan (11/06/2023 8:07 [...] done. Assessment & Plan (04/26/2022 3:19 PM PREMISES TECHNICIAN): Complete exam done. Decreased libido 03/27/2021 Overview [...] lipids. Assessment & Plan (03/27/2021 2:16 PM PREMISES TECHNICIAN): Options discussed She wants to start testosterone Risk and benefits discussed including but not limited to elevated cholesterol, increased hair growth, acne, swelling of genitals, fluid retention and deepening of voice. Use reviewed including that the amount given q 3m is done to avoid these side effects. She voices understanding and desires to proceed She will lease picker and bring to the office for injection. rto 3m Nocturia 02/13/2021 Overview (04/24/2021): Will need to discuss further at her next visit along with her other bladder issues. 04/24/21- voiding diary reviewed. She drinks a lot and voids a lot. We discussed limiting her intake after 6pm and watching for bladder irritants. Assessment & Plan (04/24/2021 3:08 PM PREMISES TECHNICIAN): voiding diary reviewed. She drinks a lot and voids a lot. We discussed limiting her intake after 6pm and watching for bladder irritants. Assessment & Plan (03/27/2021 2:00 PM PREMISES TECHNICIAN): See above Multiple atypical skin moles 01/04/2021 Assessment & Plan (06/04/2024 1:34 PM CDT): As she will have the back lesion excised we will also remove the atypical lesion on the lateral aspect of the shoulder at the same time. Assessment & Plan (10/19/2022 8:58 PM CDT): Refer to dermatology Assessment & Plan (01/04/2021 1:57 PM PREMISES TECHNICIAN): Refer to dermatology Lipoma of back 01/04/2021 Assessment & Plan (06/04/2024 1:34 PM CDT): Given the pain and discomfort that the area is causing we will set her up for excision. Assessment & Plan (01/04/2021 1:56 PM PREMISES TECHNICIAN): Refer to general surgery for evaluation Menopausal syndrome (hot flashes) 01/04/2021 Overview (03/27/2021): estradiol 1mg Assessment & Plan (06/24/2023 3:19 PM CDT): Will use the estradiol 1mg Assessment & Plan (06/01/2022 6:55 AM CDT): Controlled with estradiol 1mg To continue on Assessment & Plan (03/27/2021 2:01 PM PREMISES TECHNICIAN): Better with estradiol 1mg. Assessment & Plan (02/13/2021 3:04 PM PREMISES TECHNICIAN): Will start her on estradiol .5mg po q day. Risk and benefits discussed. Breast cancer and CV disease discussed I am hoping that if she can get some sleep, some of the libido will return. They are dating. rto 6 weeks. If she gets breast tenderness with the .5, to take 1/2 until it goes away. Assessment & Plan (01/04/2021 1:53 PM PREMISES TECHNICIAN): Having hot flashes and decreased sexual desire. [...] testing Assessment & Plan (01/04/2021 1:49 PM PREMISES TECHNICIAN): Refer to electrician technician for testing Assessment & Plan (02/03/2020 10:26 AM PREMISES TECHNICIAN): Has daily congestion due to allergies. Encouraged to restart fluticasone nasal spray daily. She has been taking Zyrtec daily. She can change that to Zyrtec D with Sudafed in it. Chronic pain of left knee 05/22/2018 Assessment & Plan (02/03/2020 10:23 AM PREMISES TECHNICIAN): Continues to have left knee pain but [...] (08/13/2017): Added automatically from request for surgery [id number] Assessment & Plan (04/26/2022 3:22 PM PREMISES TECHNICIAN): She is due for colonoscopy Bursitis of hip 08/12/2017 Stress incontinence of urine 08/12/2017 Assessment & Plan (06/24/2023 3:22 PM CDT): She feels like it is getting worse Will refer to Dr. Gar. Assessment & Plan (04/26/2022 3:21 PM PREMISES TECHNICIAN): Stable, doesn't want to get sling Assessment & Plan (04/24/2021 3:08 PM PREMISES TECHNICIAN): Better, will follow Assessment & Plan (08/12/2017 [...] management Assessment & Plan (04/22/2023 4:11 PM PREMISES TECHNICIAN): Stable/ Improved. Blood pressure is adequately controlled [...] management Assessment & Plan (04/11/2022 4:10 PM PREMISES TECHNICIAN): BP Readings from Last 3 Encounters: 02/07/22 [...] management Assessment & Plan (04/16/2021 10:26 AM PREMISES TECHNICIAN): Stable/ Improved. Blood pressure is adequately controlled [...] management Assessment & Plan (02/03/2020 10:24 AM PREMISES TECHNICIAN): Blood pressure is adequately controlled on current [...] swelling. Assessment & Plan (02/11/2017 1:17 PM PREMISES TECHNICIAN): Hypertension is improving with treatment. Dietary sodium restriction. Weight loss. Regular aerobic exercise. Continue current medications. Blood pressure will be reassessed 6 months. Depression with anxiety 02/11/2017 Assessment & Plan (11/07/2023 8:09 AM CDT): Stable on current medication. Continue clonazepam as ordered. May follow up in 6 months Assessment & Plan (04/22/2023 4:12 PM PREMISES TECHNICIAN): Continues on clonazepam 0.5 mg t.i.d. p.r.n. Assessment & Plan (10/19/2022 8:57 PM CDT): Stable. Doing well with clonazepam .5mg bid. I checked their [place] [employer] COUNSEL[employer] sheet, and it was consistent with prescribed medications. Will continue current medications and f/u 6 months Assessment & Plan (04/11/2022 4:12 PM PREMISES TECHNICIAN): Stable on current medication. Continue clonazepam as per her pcp Assessment & Plan (10/07/2021 9:39 PM CDT): Stable on current medication. Continue clonazepam as ordered. May follow up in 6 months Assessment & Plan (04/24/2021 3:09 PM PREMISES TECHNICIAN): Has been good. Will follow and see if she has a moment of depression and anxiety a month after her next shot. Assessment & Plan (04/16/2021 10:26 AM PREMISES TECHNICIAN): Is improving with hormone therapy monitored by Dr. Bai. Is going to consider restarting ssri with Dr. Bai when she follows up Assessment & Plan (03/27/2021 2:07 PM PREMISES TECHNICIAN): She will wait to see how the testosterone effects her and then restart her celexa. Assessment & Plan (02/13/2021 3:05 PM PREMISES TECHNICIAN): Stable with out meds Assessment & Plan (01/04/2021 1:51 PM PREMISES TECHNICIAN): Stable on current medication. Continue Wellbutrin as [...] recheck Assessment & Plan (02/03/2020 10:24 AM PREMISES TECHNICIAN): Stable on current medication. Continue citalopram and [...] recheck Assessment & Plan (02/11/2017 1:38 PM PREMISES TECHNICIAN): Psychological condition is improving with treatment. Medication [...] day Assessment & Plan (04/22/2023 4:12 PM PREMISES TECHNICIAN): We would increased levothyroxine to 137 mcg [...] day Assessment & Plan (04/11/2022 4:12 PM PREMISES TECHNICIAN): Lab Results Component Value Date TSH 4.40 [...] day Assessment & Plan (04/16/2021 10:25 AM PREMISES TECHNICIAN): Thyroid stable. Will continue current medication and recheck with labs this summer. Assessment & Plan (10/05/2020 11:20 AM CDT): Had increased levothyroxine to 112 mcg. Will recheck TSH today. Assessment & Plan (08/12/2020 9:11 PM CDT): Check TSH today. Continue current medication. Assessment & Plan (02/03/2020 10:24 AM PREMISES TECHNICIAN): Check TSH today. Continue current medication. Assessment [...] levothyroxine. Assessment & Plan (02/11/2017 1:37 PM PREMISES TECHNICIAN): Has been on synthroid 100mcg. Has been out for over 2 weeks. Restart synthroid 100mcg. jose will then recheck TSH in 6-8 weeks History of bladder suspension procedure 02/12/20 17 Overview (03/27/2021): Leaking now Has seen someone and was told to do kegals No PVR since prior to surgery UsG done 03/27/21 for PVR- pending Assessment & Plan (03/31/2021 6:56 PM PREMISES TECHNICIAN): Leaking now Has seen someone and was [...] diary. Assessment & Plan (02/11/2017 1:40 PM PREMISES TECHNICIAN): She feels like the bladder is dropping [...] (08/13/2017): Added automatically from request for surgery [id number] Assessment & Plan (04/22/2023 4:09 PM PREMISES TECHNICIAN): Patient Counseling: --Nutrition: Stressed importance of moderation [...] ordered Assessment & Plan (01/04/2021 1:59 PM PREMISES TECHNICIAN): -Recommended: Healthy diet. Avoiding junk food/fast food. [...] CDT Respiratory Rate 18 04/30/2024 9:46 AM PREMISES TECHNICIAN Oxygen Saturation 99% 06/04/2024 11: 14 AM CDT Inhaled Oxygen Concentration - - Weight 106.9 kg (235 lb 11.2 oz) 2024 11:14 AM CDT Height 157.5 cm (5' 2) 06/04/2024 11:1 4 AM CDT Body Mass Index 43.11 06/04/2024 11:14 AM CDT Plan of Treatment Not on file Procedures Procedure Name Priority Date/Time Associated Diagnosis Comments COLONOSCOPY 01/09/2024 12:40 PM PREMISES TECHNICIAN SCREENING MAMMOGRAM BILATERAL W SURJIT Schedule Routine, Read Routine (OP Routine) 09/21/2020 1:13 PM CDT Screening mammogram for high-risk patient from Last 3 Months or Most Recently Relevant to Health Maintenance Results * Colonoscopy (01/09/2024 12:40 PM PREMISES TECHNICIAN) Anatomical Region Laterality Modality Other Narrative Procedure Note Katey Andrade MD - 01/09/2024 12:40 PM CST [facility] Patient Name: Cassi Mcpherson Procedure Date: 01/09/2024 12:40PM Date of : 1970 Admit Type: Outpatient Age: 53 Gender: Female Attending MD: Katey Andrade M.D. Room: [facility] ENDOSCOPY ROOM 1 Note Status: Finalized Patient [...] under direct vision. The Pediatric Colonoscope [id number]-[id number] was introducedthrough the anus and advanced to [...] 12:40 PM Procedure Code(s): --- Professional --- 53194, Colonoscopy, flexible; with biopsy, single or multiple Diagnosis Code(s): --- Professional --- Z80.0, Family history of malignant neoplasm of digestive organs K64.8, Other hemorrhoids CPT copyright 2020 [employer]. All rights reserved. The codes documented in this report are preliminary and upon program support specialist reviewmay be revised to meet current compliance requirements. Recognized by the [employer] for promoting quality [...] BILATERAL W SURJIT ORDERING HEALTHCARE PROVIDER: DORY WILLMAS HISTORY: Routine screening mammography. COMPARISON: 06/09/2018 and [...] been no suspicious interval change. Dory Willams E COMMERCE STRATEGIST IMG MAMMO PROCEDURES Final Re sult from Last 3 Months or Most Recently Relevant to Health Maintenance Insurance ANTHEM ACCESS CHOICE ANTHEM ACCESS CHOICE ANTHEM ACCESS CHOICE Advance Directives For more information, please contact: [phone] * Full Code (Latest Code Status on File) Date Activated Date Inactivated Comments 01/09/2024 12:15 PM 01/09/2024 6:50 PM * Full Code Date Activated Date Inactivated Comments 01/09/2024 12:15 PM 01/09/2024 12:15 PM * Full Code Date Activated Date Inactivated Comments 10/14/2017 11:47 AM 10/14/2017 4:17 PM Care Teams Black Puller Relationship Specialty Start Date End Date Dory Willams NP PCP - General Family Medicine 02/11/17 Raquel Bai MD Consulting Physician Obstetrics and Gynecology 10/04/21
[2024-08-01 20:06] LABS: Influenza A QL RT-PCR Negative (Negative); Influenza B QL RT-PCR Negative (Negative); SARS-CoV-2 RNA PCR Negative (Negative)
[2024-08-01] MEDS: LACTATED RINGERS 1,000 ML 999 ML IV CONT (20:26)
[2024-08-01] MEDS: KETOROLAC 15 MG/ML VIAL (*BKC) IV PUSH (20:26)
--- NOTE | 2024-08-01 20:33 | ED.CHESTPAIN ---
HPI - Chest Pain General Chief Complaint: Chest Pain Stated Complaint: chest pain Time Seen by Provider: 08/01/24 19:39 History of Present Illness HPI narrative: 54-year-old female with a past medical history including hypertension, hormone imbalances on supplemental estrogen. Patient presents to the emergency department went feeling unwell, having some chest tightness, nausea, back pain and right arm pain. Endorses some mild subjective shortness of breath intermittent with these symptoms. [place] flushed and vomited this morning. Was otherwise in her normal state of health, never had any symptoms like this in the past. No leg swelling or history of DVT/PE. No history of cardiac disease. Has not taken anything for symptom management prior to arrival. Related Data Home Medications ?Medication ?Instructions ?Recorded ?Confirmed ?Last Taken ?Type atenolol 02/28/21 Unknown History hydrochlorothiazide 02/28/21 Unknown History levothyroxine 02/28/21 Unknown History Allergies Allergy/AdvReac Type Severity Reaction Status Date / Time No Known Allergies Allergy Verified 08/01/24 19:21 Review of Systems Review of Systems: As reviewed [facility] Social History Social History Substance use type: unknown Exam Narrative: GENERAL: [Well-appearing, well-nourished, and in no acute distress.] HEAD: [Normocephalic, atraumatic.] EYES: [PERRLA and EOMI.] ENT: Nares clear, no rhinorrhea or epistaxis. Mucous membranes moist. NECK: Supple. CHEST: [Clear to auscultation. No respiratory distress.] HEART: [Regular rate and rhythm]. No murmur heard. [Normal peripheral pulses.] ABDOMEN: [Soft, nondistended], [nontender], [No rigidity or guarding] EXTREMITIES: Normal range of motion. Nonpitting bilateral lower extremity edema bilaterally SKIN: Warm, dry, no rash. NEURO: [No focal deficits]. Alert and oriented [x3.] PSYCH: [Normal mood and affect.] Course Vital Signs Vital signs: Vital Signs Temperature 36.7 C 08/01/24 19:17 Pulse Rate 72 08/01/24 19:17 Respiratory Rate 15 08/01/24 19:17 Blood Pressure 165/105 H 08/01/24 19:17 Pulse Oximetry 99 08/01/24 19:17 Oxygen Delivery Room Air 08/01/24 19:17 Temperature 36.7 C 08/01/24 19:17 Pulse Rate 64 08/01/24 22:38 Respiratory Rate 19 08/01/24 22:38 Blood Pressure 134/74 08/01/24 22:38 Pulse Oximetry 98 08/01/24 22:38 Oxygen Delivery Room Air 08/01/24 21:28 MDM - Chest Pain MDM Narrative Medical decision making narrative: 54-year-old female with a past medical history including hypertension, hormone imbalances on estrogen supplementation. Patient presents to the emergency department with vague complaints of feeling unwell, feeling flushed and nauseous with 1 episode of vomiting this morning associated with some chest pain/tightness with back neck and right arm pain. She is not any acute distress examination, mildly elevated blood pressure 165/105 that came down to 145 without any intervention. She has 2+ symmetric non pitting edema, no signs of DVT, no difficulty breathing, vital signs show no tachycardia, hypoxia, fever, tachypnea. She has clear breath sounds throughout. Considerations presently are for viral syndrome, ACS, pneumonia, pneumothorax, less likely thromboembolic disease such as a pulmonary embolism although she does have high risk factors including the estrogen supplementation. She meets low Wells criteria but will be evaluated with a D-dimer to safely rule this out. Cardiac workup ordered including troponin, EKG, chest x-ray, CBC, CMP, lipase. Workup shows no leukocytosis or anemia. Normal platelet count. D-dimer is negative. Normal coagulation panel. Unremarkable electrolytes aside from minor hypokalemia but not severe. Normal creatinine, normal glucose, normal LFTs. Negative initial troponin. Negative delta troponin. Negative lipase. Viral panel negative. Chest x-ray shows no acute cardiopulmonary process. EKG shows sinus rhythm with no interval changes. Patient is safe for discharge home at this time given her unremarkable cardiac workup, normal laboratory studies. Patient likely has a viral illness and syndrome causing her symptomatology. No urgent or emergent concerns identified today and she can be followed up with outpatient. Medical Records Data Attestation: I reviewed the patient's medical records. Lab Data Attestation: I reviewed the patient's lab results. 08/01/24 19:24 08/01/24 19:24 Labs: Lab Results 08/01/24 08/01/24 Range/Units 19:24 22:12 WBC 8.7 (4.5-10.0) K/mm3 RBC 4.34 (4.2-5.4) M/mm3 Hgb 13.6 (12.0-15.0) g/dL Hct 40.5 (37.0-47.0) % MCV 93.3 (80-100) fl MCH 31.3 (26-34) pg MCHC 33.6 (32-36) g/dl RDW 13.0 (11.5-14.5) % Plt Count 195 (150-375) k/mm3 MPV 10.9 H (7.4-10.4) fl Immature Gran % (Auto) 0.5 (0-0.5) % Neut % (Auto) 52.8 (45.5-73.1) % Lymph % (Auto) 24.3 (18.3-44.2) % Crawford % (Auto) 8.7 H (2.6-8.5) % Eos % (Auto) 12.6 H (0-4.4) % Baso % (Auto) 1.1 (0.2-1.2) % Lymph # (Auto) 2.12 (0.9-3.2) K/mm3 Crawford # (Auto) 0.8 H (0.1-0.6) K/mm3 Eos # (Auto) 1.1 H (0-0.3) K/mm3 Baso # (Auto) 0.1 (0.0-0.1) K/mm3 Abs Immat Gran (auto) 0.04 H (0.00-0.031) K/mm3 Absolute Neuts (auto) 4.6 (1.3-6.7) K/mm3 Absolute Nucleated RBC 0.000 (0.0-0.012) K/mm3 Nucleated RBC % 0.0 (0.0-0.2) % PT 14.5 (11.1-14.7) Seconds INR 1.1 APTT 28.0 (22.3-36.8) Seconds D-Dimer 0.39 (<0.48) ug/mL Sodium 135 L (137-145) mmol/L Potassium 3.2 L (3.4-5.0) mmol/L Chloride 99 (98-107) mmol/L Carbon Dioxide 27 (22-30) mmol/L Anion Gap 9 (4-12) mmol/L BUN 9 (7-17) mg/dL Creatinine 0.66 L (0.7-1.0) mg/dL Estim Creat Clear Calc 99 ml/min Estimated GFR > 60 (59 - ) Glucose 103 (65-110) mg/dL Calcium 9.0 (8.4-10.2) mg/dL Total Bilirubin 0.9 (0.2-1.3) mg/dL AST 24 (14-36) U/L ALT 16 (6-35) U/L Alkaline Phosphatase 54 (38-126) U/L Troponin I < 0.012 < 0.012 (0.000-0.034) ng/mL Total Protein 7.4 (6.3-8.2) g/dL Albumin 4.4 (3.5-5.1) g/dL Lipase 76 (23-300) U/L Influenza A (RT-PCR) Negative (Negative) Influenza B (RT-PCR) Negative (Negative) SARS-CoV-2 RNA (RT-PCR) Negative (Negative) Imaging Data Attestation: I personally reviewed and interpreted this imaging study as follows: My impression: Impressions Chest X-Ray 08/01/24 19:42 IMPRESSION: No acute cardiopulmonary process. Discharge Plan Discharge Clinical Impression: Chest pain, Acute viral syndrome Patient Disposition: Home Condition: Stable Instructions: Antibiotic Form, Chest Pain (ED) Additional Instructions: All of your cardiac enzymes and workup here were unremarkable. No signs of any cardiac complications, no pneumonia. Your blood pressure has decreased without any interventions and your symptoms are likely attributed to a potential viral illness but nothing urgent or emergent was found today. Follow-up with your regular doctor, we will send you home with prescriptions for some Zofran and ibuprofen. Return with any emergent concerns. Patient Language: [place]i Prescriptions: New ibuprofen 800 mg tablet 800 mg PO TID PRN (Reason: pain) Qty: 20 0RF ondansetron 4 mg tablet,disintegrating 4 mg PO Q8H PRN (Reason: nausea and vomiting) Qty: 10 0RF No Action atenolol hydrochlorothiazide levothyroxine Follow-up/Referrals: Екатерина,LISA Lafleur [Primary Care Provider] - Time of Disposition: 23:33
[2024-08-01 20:47] LABS: D Dimer 0.39 ug/mL (<0.48)
[2024-08-01 21:05] VITALS: BP 161/86; PULSE 67; RESP 21; O2SAT 98
[2024-08-01 21:28] VITALS: PULSE 65; O2SAT 98
--- NOTE | 2024-08-01 22:06 | ECG_ITS ---
Test Date: 2024-08-01 22:12:23 Measurements Intervals [place] Rate: 63 P: 54 [place]: 187 QRS: 6 QRSD: 89 T: 17 QT: 412 QTc: 423 Interpretive Statements SINUS RHYTHM BASELINE ARTIFACT- I, II, III, AVR, AVL, AVF NORMAL ECG Compared to ECG 08/01/2024 19:22:57 No significant changes Electronically Signed On 08-02-2024 07:20:35 CDT by Richard Murphy D.O.
[2024-08-01 22:38] VITALS: BP 134/74; PULSE 64; RESP 19; O2SAT 98
[2024-08-01 23:04] LABS: Troponin I < 0.012 ng/mL (0.000-0.034)
== END 2024-08-01 23:54 | disposition home or self-care (01) ==
PROVIDERS: Emergency Provider Student in an Organized Health Care Education/Training Program; PCP Nurse Practitioner Family
DX: R07.89 Other chest pain (principal); B34.9 Viral infection, unspecified; I10 Essential (primary) hypertension; Z79.890 Hormone replacement therapy; Z20.822 Contact with and (suspected) exposure to COVID-19
CPT/HCPCS: 36415; 71046; 80053; 83690; 84484; 85025; 85380; 85610; 85730; 87636; 93005; 96361; 96374; 99284; J1885; J7120